=== PATIENT | female | born 1965 ===

== ENCOUNTER 2024-05-30 13:13 | Outpatient (CLI) | payer MEDICARE, MEDICAID, SELFPAY ==
--- NOTE | 2024-05-30 13:24 | USCV_ITS ---
Liz Peng Age: 59 Gender: F : 1965 Exam Date: 05/30/2024 12:50 Ordering Phys: Candace Adams Technologist: SHARDA Exam Location: [facility] Indication: varicose veins HISTORY: Lower extremity swelling. Varicose veins. Edema. Swelling. PROCEDURES: Venous duplex imaging was performed in bilateral lower extremities. The following venous structures were evaluated: common femoral vein, profunda vein, proximal portion of the greater saphenous vein, superficial femoral vein, and the popliteal vein. In addition, the posterior tibial veins were evaluated. Bilaterally, the common femoral, superficial femoral, profunda femoral, popliteal, posterior tibial, greater saphenous veins, and the peroneal trunk were identified and interrogated in the standard fashion. These veins were found to be easily compressible with spontaneous blood flow. No evidence of insufficiency or thrombus noted. Serial compression, augmentation maneuvers, and spectral Doppler flow evaluation were performed. Grayscale and doppler images were obtained. Reflux maneuvers were performed with patient in the standing position. Bilateral duplex Venous Insufficiency study of the Deep and Superficial systems was carried out according to normal protocol with the patient in supine positon for deep system and dependent position for the superficial system. FINDINGS: Examination was technically limited due to body habitus. No evidence of DVT seen in any vessel visualized at this time. No thrombus seen. CONCLUSIONS No evidence of right lower extremity DVT. No evidence of left lower extremity DVT. Costa Li MD (Electronically Signed) Final Date: 30 May 2024 14:48 S
== END 2024-05-30 13:14 | disposition home or self-care (01) ==
LOC: RAD 13:15
PROVIDERS: Family Provider Nurse Practitioner; Visit Provider Nurse Practitioner Family
DX: I83.93 Asymptomatic varicose veins of bilateral lower extremities (principal)
CPT/HCPCS: 93970

== ENCOUNTER 2025-02-10 13:22 | Emergency (ER) | payer OTHER, MEDICAID, SELFPAY ==
[2025-02-10 13:26] VITALS: BP 159/88; PULSE 69; RESP 16; TEMP 37.4; O2SAT 95; BMI 36.3
--- OUTSIDE RECORDS SUMMARY | 2025-02-10 13:30 | XMS_ITS | Encounter Summary ---
Author Organization [facility] Address [address] [place] [address] Care Team Providers Care Controls Technician Name Role Phone Isac Rubalcava MD Primary Care Provider +1 [phone] Encounter Details Date Type Department Care Team (Latest Contact Info) Description 06/03/[address] 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
--- OUTSIDE RECORDS SUMMARY | 2025-02-10 13:30 | XMS_ITS | Encounter Summary ---
Author Organization [facility] Address [address] [place] [address] Care Team Providers Care Clinical Investigator Name Role Phone Isac Rubalcava MD Primary Care Provider +1 -[phone] Encounter Details Date Type Department Care Team (Late st Contact Info) Description 05/18/2004 Outpatient Historical [facility] Neurology [address] [facility], [address] [place] [address] Sean Aaron MD [address] [place] [address] TREMOR NEC (Primary Dx) Social History Tobacco Use Types Packs/Day Years Used Date Smoking Tobacco: Never Assessed Comments Unknown Sex and Gender Information Value Date Recorded Sex Assigned at Not on file 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
--- OUTSIDE RECORDS SUMMARY | 2025-02-10 13:30 | XMS_ITS | Encounter Summary ---
Author Organization [facility] Address [address] [place] [address] Care Team Providers Care Sash Clamp Operator Name Role Phone Isac Rubalcava MD Primary Care Provider +1 [phone] Encounter Details Date Type Department Care Team (Latest Contact Info) Description 10/02/2003 Outpatient Historical [facility] [address] [place] [address] Nayla Garcia, MARINE PILOT [address] [place] [address] ANXIETY STATE NOS (Primary Dx) Social History Tobacco Use Types Packs/Day Years Used Date Smoking Tobacco: Never Assessed Comments Unknown Sex and Gender Information Value Date Recorded Sex Assigned at Not on file 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
--- OUTSIDE RECORDS SUMMARY | 2025-02-10 13:30 | XMS_ITS | Encounter Summary ---
Author Organization [facility] Address [address] [place] [address] Care Team Providers Care Tax Compliance Representative Name Role Phone Isac Rubalcava MD Primary Care Provider +1 [phone] Encounter Details Date Type Department Care Team (Late st Contact Info) Description 08/12/2003 Outpatient Historical [facility] General and Trauma Surgery-[address] [place] [address] Caleb Rogers MD [address] [address] SURGERY FOLLOWUP, UNSPEC (Primary Dx) Social History Tobacco Use Types Packs/Day Years Used Date Smoking Tobacco: Never Assessed Comments Unknown Sex and Gender Information Value Date Recorded Sex Assigned at Not on file 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
--- OUTSIDE RECORDS SUMMARY | 2025-02-10 13:30 | XMS_ITS | Encounter Summary ---
Author Organization [facility] Address [address] [place] [address] Care Team Providers Care Behavioral Health Rn Name Role Phone Isac Rubalcava MD Primary Care Provider +1 [phone] Encounter Details Date Type Department Care Team (Latest Contact Info) Description 05/22/2003 Outpatient Historical [facility] [address] [place] [address] Myriam Gandhi MD NO ADDRESS ON FILE Gynecologic examination (Primary Dx) Social History Tobacco Use Types Packs/Day Years Used Date Smoking Tobacco: Never Assessed Comments Unknown Sex and Gender Information Value Date Recorded Sex Assigned at Not on file 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
--- OUTSIDE RECORDS SUMMARY | 2025-02-10 13:30 | XMS_ITS | Encounter Summary ---
Author Organization [facility] Address [address] [place] [address] Care Team Providers Care Side Gluer Name Role Phone Isac Rubalcava MD Primary Care Provider +1 [phone] Encounter Details Date Type Department Care Team (Latest Contact Info) Description 06/22/2003 Outpatient Historical [facility] [address] [place] [address] Edgar Moyer MD [address] [address] FEMALE GENITAL SYMPTOMS NOS (Primary Dx) Social History Tobacco Use Types Packs/Day Years Used Date Smoking Tobacco: Never Assessed Comments Unknown Sex and Gender Information Value Date Recorded Sex Assigned at Not on file 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
--- OUTSIDE RECORDS SUMMARY | 2025-02-10 13:30 | XMS_ITS | Encounter Summary ---
Author Organization [facility] Address [address] [place] [address] Care Team Providers Care Drafter Chief Design Name Role Phone Isac Rubalcava MD Primary Care Provider +1 [phone] Encounter Details Date Type Department Care Team (Latest Contact Info) Description 05/20/2004 Outpatient Historical [facility] Endocrinology-[facility] [place] [address] [place] [address] Burak Coles MD NO ADDRESS ON FILE THYROTOX NOS NO CRISIS (Primary Dx); TOX DIF GOITER NO CRISIS Social History Tobacco Use Types Packs/Day Years Used Date Smoking Tobacco: Never Assessed Comments Unknown Sex and Gender Information Value Date Recorded Sex Assigned at Not on file 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 Gender Identity Not on file Sexual Orientation Not on file documented as of this encounter Plan of Treatment Not on file documented as of this encounter Visit Diagnoses Diagnosis Thyrotoxicosis without mention of goiter or other cause, without mention of thyrotoxic crisis or storm- 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
--- OUTSIDE RECORDS SUMMARY | 2025-02-10 13:30 | XMS_ITS | Encounter Summary ---
Author Organization [facility] Address [address] [place] [address] Care Team Providers Care Protection Chief Industrial Plant Name Role Phone Isac Rubalcava MD Primary Care Provider +1 [phone] Encounter Details Date Type Department Care Team (Latest Contact Info) Description 06/02/2004 Outpatient Historical [facility] [place] [address] [place] [address] Burak Coles MD NO ADDRESS ON FILE THYROTOX NOS NO CRISIS (Primary Dx); TOX DIF GOITER NO CRISIS Social History Tobacco Use Types Packs/Day Years Used Date Smoking Tobacco: Never Assessed Comments Unknown Sex and Gender Information Value Date Recorded Sex Assigned at Not on file 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 Gender Identity Not on file Sexual Orientation Not on file documented as of this encounter Plan of Treatment Not on file documented as of this encounter Visit Diagnoses Diagnosis Thyrotoxicosis without mention of goiter or other cause, without mention of thyrotoxic crisis or storm- Primary Toxic diffuse goiter without mention of thyrotoxic crisis or storm documented in this encounter Care Teams Protection Chief Industrial Plant Relationship Specialty Start Date End Date Isac Rubalcava MD [address] [facility] [address] [place] [address] PCP - General Family Practice 03/06/18 05/19/19 documented as of this encounter
--- OUTSIDE RECORDS SUMMARY | 2025-02-10 13:30 | XMS_ITS | Encounter Summary ---
Author Organization [facility] Address [address] [place] [address] Care Team Providers Care Brusher Name Role Phone Isac Rubalcava MD Primary Care Provider +1 [phone] Encounter Details Date Type Department Care Team (Latest Contact Info) Description 07/15/2003 Inpatient Historical [facility] Emergency Department [address] [place] [address] Caleb Rogers MD [address] [address] DIS OF GALLBLADDER NEC (Primary Dx) Social History Tobacco Use Types Packs/Day Years Used Date Smoking Tobacco: Never Assessed Comments Unknown Sex and Gender Information Value Date Recorded Sex Assigned at Not on file 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
--- OUTSIDE RECORDS SUMMARY | 2025-02-10 13:31 | XMS_ITS | Encounter Summary ---
Author Organization [facility] Address [address] [place] [address] Care Team Providers Care Port Warden Name Role Phone Isac Rubalcava MD Primary Care Provider +1 [phone] Encounter Details Date Type Department Care Team (Latest Contact Info) Description 04/29/2002 Outpatient Historical [facility] General Surgery [address] [address] [address] [place] [address] [place] [address] [facility] [address] [place] [address] ABDOMINAL PAIN EPIGASTRIC (Primary Dx) Social History Tobacco Use Types Packs/Day Years Used Date Smoking Tobacco: Never Assessed Comments Unknown Sex and Gender Information Value Date Recorded Sex Assigned at Not on file 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
--- OUTSIDE RECORDS SUMMARY | 2025-02-10 13:31 | XMS_ITS | Encounter Summary ---
Author Organization [facility] Address [address] [place] [address] Care Team Providers Care Appraiser Art Name Role Phone Isac Rubalcava MD Primary Care Provider +1 [phone] Encounter Details Date Type Department Care Team (Latest Contact Info) Description 04/14/2002 Outpatient Historical [facility] [address] [place] [address] Myriam Gandhi MD NO ADDRESS ON FILE Gynecologic examination (Primary Dx); FEMALE GENITAL SYMPTOMS NOS Social History Tobacco Use Types Packs/Day Years Used Date Smoking Tobacco: Never Assessed Comments Unknown Sex and Gender Information Value Date Recorded Sex Assigned at Not on file 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
--- OUTSIDE RECORDS SUMMARY | 2025-02-10 13:31 | XMS_ITS | Encounter Summary ---
Author Organization [facility] Address [address] [place] [address] Care Team Providers Care Box Spinner Name Role Phone Isac Rubalcava MD Primary Care Provider +1 -[phone] Reason for Referral * Outpatient Services (Routine) - Closed Specialty Diagnoses / Procedures Referred By Kevin crow Referred To Contact Diagnoses Neck swelling Nodule of neck Neck pain Procedures CT SOFT TISSUE NECK W CONTRAST Ines Byrd NP [address] [place] [address] Phone: tel: fax: Referral ID Status Reason Start Date Expiration Date Visits Re quested Visits Authorized [id number] Closed 04/29/2012 04/29/2013 1 1 Encounter Details Date Type Department Care Team (Late Contact Info) Description 04/29/2012 Ancillary Orders [facility] CT Scan [place] [address] [place] [address] Ines Byrd NP [address] [place] [address] Neck swelling; Nodule of neck; Neck pain Social History Tobacco Use Types Packs/Day Years Used Date Smoking Tobacco: Never Assessed Comments Unknown Sex and Gender Information Value Date Recorded Sex Assigned at Not on file 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 Sagittal and coronal reconstructions are also obtained. DESCRIPTION There is normal appearance of the parapharyngeal soft tissues and of the pharynx, hypopharynx, valleculae, piriform sinuses, larynx, and visualized portion of trachea. The hypopharynx is nondistended. There is normal appearance of the salivary glands. No cervical adenopathy is appreciated. There is normal appearance and appropriate symmetry of the cervical vasculature, with minimal atherosclerosis of the aortic arch noted. The thyroid gland appears small, with no thyroid nodule seen. The visualized portion of the brain and cerebellum appears unremarkable. The patient is edentulous. A skin marker placed at the site of the palpable nodule lies between the left submandibular gland and anterior border of the left sternocleidomastoid. No other soft tissue nodule or mass is appreciated at this location. There is mild osteophyte formation of the cervical spine more pronounced in the lower cervical levels. There is opacification of the maxillary sinuses compatible chronic sinusitis. There are some bullous changes in the pulmonary apices and there appears to be minimal dependent congestion on the lowermost images. IMPRESSION 1. negative for cervical adenopathy or mass 2. chronic sinusitis 3. small pulmonary apical bullous changes Procedure Note Neo Lucia MD - 05/02/[address] SOFT TISSUE NECK, IV contrast-enhanced 01 May 2012 TECHNIQUE Helical axial imaging was obtained from the skull base into the upper thorax at 3 mm increments for 87 axial images. Sagittal and coronal reconstructions are also obtained. DESCRIPTION There is normal appearance of the parapharyngeal soft tissues and of the pharynx, hypopharynx, valleculae, piriform sinuses, larynx, and visualized portion of trachea. The hypopharynx is nondistended. There is normal appearance of the salivary glands. No cervical adenopathy is appreciated. There is normal appearance and appropriate symmetry of the cervical vasculature, with minimal atherosclerosis of the aortic arch noted. The thyroid gland appears small, with no thyroid nodule seen. The visualized portion of the brain and cerebellum appears unremarkable. The patient is edentulous. A skin marker placed at the site of the palpable nodule lies between the left submandibular gland and anterior border of the left sternocleidomastoid. No other soft tissue nodule or mass is appreciated at this location. There is mild osteophyte formation of the cervical spine more pronounced in the lower cervical levels. There is opacification of the maxillary sinuses compatible chronic sinusitis. There are some bullous changes in the pulmonary apices and there appears to be minimal dependent congestion on the lowermost images. IMPRESSION 1. negative for cervical adenopathy or mass 2. chronic sinusitis 3. small pulmonary apical bullous changes Ines Byrd FOREST FIRE EQUIPMENT OPERATOR CT ORDERABLES Final Result documented in this encounter Visit Diagnoses Diagnosis Neck swelling Swelling, mass, or lump in head and neck Nodule of neck Swelling, mass, or lump in head and neck Neck pain Cervicalgia Neck swelling Swelling, mass, or lump in head and neck Nodule of neck Swelling, mass, or lump in head and neck Neck pain Cervicalgia documented in this encounter Care Teams Box Spinner Relationship Specialty Start Date End Date Isac Rubalcava MD [address] [facility] [address] [place] [address] PCP - General Family Practice 03/06/18 05/19/19 documented as of this encounter
--- OUTSIDE RECORDS SUMMARY | 2025-02-10 13:31 | XMS_ITS | Encounter Summary ---
Author Organization [facility] Address [address] [place] [address] Care Team Providers Care Pe Manager Name Role Phone Isac Rubalcava MD Primary Care Provider +1 [phone] Encounter Details Date Type Department Care Team (Latest Contact Info) Description 04/28/2002 Outpatient Historical [facility] [address] [place] [address] Bruce Gomez DO NO ADDRESS ON FILE ABDOMINAL PAIN RUQ (Primary Dx) Social History Tobacco Use Types Packs/Day Years Used Date Smoking Tobacco: Never Assessed Comments Unknown Sex and Gender Information Value Date Recorded Sex Assigned at Not on file 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
--- OUTSIDE RECORDS SUMMARY | 2025-02-10 13:31 | XMS_ITS | Encounter Summary ---
Author Organization [facility] Address [address] [place] [address] Care Team Providers Care Flower Pot Press Operator Name Role Phone Isac Rubalcava MD Primary Care Provider +1 -[phone] Encounter Details Date Type Department Care Team (Late st Contact Info) Description 05/01/2012 Ancillary Orders [facility] [address] [place] [address] Ines Byrd, TARYN [address] [place], [place] [address] Neck pain Social History Tobacco Use Types Packs/Day Years Used Date Smoking Tobacco: Never Assessed Comments Unknown Sex and Gender Information Value Date Recorded Sex Assigned at Not on file Legal Sex Female 5:53 AM SHAREPOINT DESIGNER DEVELOPER Gender Identity Not on file Sexual Orientation Not on file documented as of this encounter Plan of Treatment Not on file documented as of this encounter Results * XR CERVICAL SPINE 2 OR 3 VW (05/01/2012 11:30 AM CDT) Anatomical Region Laterality Modality Spine Computed Radiogr aphy 05/01/2012 11:1 7 AM CDT Narrative 05/02/2012 8:25 AM CDT DESCRIPTION AP and lateral cervical spine views and open-mouth odontoid projection 01 May 2012 show no acute fracture or loss of alignment. There are small anterior osteophytes of the inferior corners of the vertebral bodies. [place]-dens relationship is normal although partially obscured by the occiput. IMPRESSION mild osteoarthritis Procedure Note Neo Lucia MD - 05/02/2012 DESCRIPTION AP and lateral cervical spine views and open-mouth odontoid projection 01 May 2012 show no acute fracture or loss of alignment. There are small anterior osteophytes of the inferior corners of the vertebral bodies. [place]-dens relationship is normal although partially obscured by the occiput. IMPRESSION mild osteoarthritis Ines Byrd NP DIAGNOSTIC IMAGING ORDERABLE S Final Result documented in this encounter Visit Diagnoses Diagnosis Neck pain Cervicalgia Neck pain Cervicalgia documented in this encounter Care Teams Flower Pot Press Operator Relationship Specialty Start Date End Date Isac Rubalcava MD [address] [address] PCP - General Family Practice 03/06/18 05/19/19 documented as of this encounter
--- OUTSIDE RECORDS SUMMARY | 2025-02-10 13:31 | XMS_ITS | Encounter Summary ---
Author Organization [facility] Address [address] [place] [address] Care Team Providers Care Asbestos Coverer Name Role Phone Isac Rubalcava MD Primary Care Provider +1 [phone] Encounter Details Date Type Department Care Team (Late st Contact Info) Description 07/22/2004 Outpatient Historical [facility] Myriam Gandhi MD NO ADDRESS ON FILE aNyla Garcia, BAKERY WORKER CONVEYOR LINE [address] [place] [phone] Social History Tobacco Use Types Packs/Day Years Used Date Smoking Tobacco: Never Assessed Comments Unknown Sex and Gender Information Value Date Recorded Sex Assigned at Not on file Legal Sex Female 5:53 AM TYPEWRITER RIBBON WINDER Gender Identity Not on file Sexual Orientation Not on file documented as of this encounter Plan of Treatment Not on file documented as of this encounter Procedures Procedure Name Priority Date/Time Associated Diagnosis Comments TSH Routine 07/22/2004 12:40 AM TYPEWRITER RIBBON WINDER T4 FREE Routine 07/22/2004 12:40 AM TYPEWRITER RIBBON WINDER documented in this encounter Results * (ABNORMAL) T4 FREE (07/22/2004 12:40 AM TYPEWRITER RIBBON WINDER) T4 FREE 0.63(L) 0.71 - 1.85 ng/dL INTERFACE SYSTEM 07/22/2004 12:4 0 AM TYPEWRITER RIBBON WINDER us Myriam Gandhi MD CHEMISTRY ORDERABLES Final Result Performing Organization Address City/State/[facility] Co de Phone Number INTERFACE SYSTEM Refer to clinic/hospital department * (ABNORMAL) TSH (07/22/2004 12:40 AM TYPEWRITER RIBBON WINDER) TSH <0.03(L) 0.49 - 4.67 uIU/ml INTERFACE SYSTEM 07/22/2004 12:4 0 AM TYPEWRITER RIBBON WINDER Myriam Gandhi MD CHEMISTRY ORDERABLES Final Result Performing Organization Address [facility] de Phone Number INTERFACE SYSTEM Refer to clinic/hospital department documented in this encounter Visit Diagnoses Not on filedocumented in this encounter Care Teams Asbestos Coverer Relationship Specialty Start Date End Date Isac Rubalcava MD [address] [phone] PCP - General Family Practice 03/06/18 05/19/19 documented as of this encounter
--- OUTSIDE RECORDS SUMMARY | 2025-02-10 13:31 | XMS_ITS | Encounter Summary ---
Author Organization [facility] Address [address] Zabala: [place] [address] Care Team Providers Care Lapel Padder Blindstitch Name Role Phone Isac Rubalcava MD Primary Care Provider +1 [phone] Encounter Details Date Type Department Care Team (Late st Contact Info) Description 06/20/2005 Outpatient Historical Nayla Garcia, STAFF TRAINER [address] [place] [address] Social History Tobacco Use Types Packs/Day Years Used Date Smoking Tobacco: Never Assessed Comments Unknown Sex and Gender Information Value Date Recorded Sex Assigned at Not on file Legal Sex Female 5:53 AM SUPPRESSION CREW LEADER Gender Identity Not on file Sexual Orientation Not on file documented as of this encounter Plan of Treatment Not on file documented as of this encounter Visit Diagnoses Not on filedocumented in this encounter Care Teams Lapel Padder Blindstitch Relationship Specialty Start Date End Date Isac Rubalcava MD [address] [facility] [address] [place] [address] PCP - General Family Practice 03/06/18 05/19/19 documented as of this encounter
--- OUTSIDE RECORDS SUMMARY | 2025-02-10 13:31 | XMS_ITS | Encounter Summary ---
Author Organization [facility] Address [address] [place] [address] Care Team Providers Care Banking Specialist Name Role Phone Isac Rubalcava MD Primary Care Provider +1 [phone] Encounter Details Date Type Department Care Team (Latest Contact Info) Description 07/06/2004 Outpatient Historical [facility] [address] [place] [address] Nayla Garcia, RETORT LOAD EXPEDITER [address] [place] [address] ACUTE SINUSITIS NOS (Primary Dx) Social History Tobacco Use Types Packs/Day Years Used Date Smoking Tobacco: Never Assessed Comments Unknown Sex and Gender Information Value Date Recorded Sex Assigned at Not on file Legal Sex Female 5:53 AM WOOL CLASSER Gender Identity Not on file Sexual Orientation Not on file documented as of this encounter Plan of Treatment Not on file documented as of this encounter Visit Diagnoses Diagnosis Acute sinusitis, unspecified- Primary documented in this encounter Care Teams Banking Specialist Relationship Specialty Start Date End Date Isac Rubalcava MD [address] [facility] [address] [place] [phone] PCP - General Family Practice 03/06/18 05/19/19 documented as of this encounter
--- OUTSIDE RECORDS SUMMARY | 2025-02-10 13:31 | XMS_ITS | Encounter Summary ---
Author Organization [facility] Address [address] [place] [address] Care Team Providers Care Coffin Maker Name Role Phone Isac Rubalcava MD Primary Care Provider +1 [phone] Encounter Details Date Type Department Care Team (Latest Contact Info) Description 05/01/2005 Outpatient Historical [facility] [address] [place] [address] Nayla Garcia, TRANSMISSION REPAIRER [address] [place] [address] TOX DIF GOITER NO CRISIS (Primary Dx); ACUTE URI NOS Social History Tobacco Use Types Packs/Day Years Used Date Smoking Tobacco: Never Assessed Comments Unknown Sex and Gender Information Value Date Recorded Sex Assigned at Not on file Legal Sex Female 5:53 AM AVIONICS SUPERVISOR Gender Identity Not on file Sexual Orientation Not on file documented as of this encounter Plan of Treatment Not on file documented as of this encounter Visit Diagnoses Diagnosis 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
--- OUTSIDE RECORDS SUMMARY | 2025-02-10 13:31 | XMS_ITS | Encounter Summary ---
Author Organization [facility] Address [address] [place] [address] Care Team Providers Care Sharepoint Web Developer Name Role Phone Isac Rubalcava MD Primary Care Provider +1 [phone] Encounter Details Date Type Department Care Team (Late st Contact Info) Description 01/06/2014 Ancillary Orders [facility] Admitting [address] [place] [address] Ines Byrd, TARYN [address] [place], [place] [address] Low back pain (Primary Dx) Social History Tobacco Use Types Packs/Day Years Used Date Smoking Tobacco: Every Day Cigarettes Alcohol Use Standard Drinks/Week Comments No 0 (1 standard drink = 0.6 oz pur e alcohol) Comments No Sex and Gender Information Value Date Recorded Sex Assigned at Not on file Legal Sex Female 5:53 AM SLURRY MAN Gender Identity Not on file Sexual Orientation Not on file Occupation Industry Job Start Date Job End Date Not on file Not on file Not on file Not on file documented as of this encounter Plan of Treatment Not on file documented as of this encounter Results * XR LUMBAR SPINE 2 OR 3 VW (01/06/2014 11:11 AM CDT) Anatomical Region Laterality Modality Spine Computed Radiogr aphy 01/06/2014 11:0 3 AM CDT Narrative 01/06/2014 11:54 AM CDT PROCEDURE XR LUMBAR SPINE, three views 06 January 2014 DESCRIPTION AP and lateral views of the lumbar spine and collimated lateral L5-S1 projection show lumbar levoscoliosis with degenerative change at the lumbosacral junction. There is prominent anteroleft lateral osteophyte at L5-S1. Surgical clips are noted in the right upper quadrant, likely status post cholecystectomy. IMPRESSION scoliosis and degenerative changes Procedure Note Neo Luica MD - 01/06/2014 PROCEDURE XR LUMBAR SPINE, three views 06 January 2014 DESCRIPTION AP and lateral views of the lumbar spine and collimated lateral L5-S1 projection show lumbar levoscoliosis with degenerative change at the lumbosacral junction. There is prominent anteroleft lateral osteophyte at L5-S1. Surgical clips are noted in the right upper quadrant, likely status post cholecystectomy. IMPRESSION scoliosis and degenerative changes Ines Byrd LOADING UNIT OPERATOR SEATING DIAGNOSTIC IMAGING ORDERABLE S Final Result documented in this encounter Visit Diagnoses Diagnosis Low back pain- Primary Lumbago Low back pain Lumbago documented in this encounter Care Teams Sharepoint Web Developer Relationship Specialty Start Date End Date Isac Rubalcava MD [address] [facility] [address] [place] [address] PCP - General Family Practice 03/06/18 05/19/19 documented as of this encounter
--- OUTSIDE RECORDS SUMMARY | 2025-02-10 13:31 | XMS_ITS | Encounter Summary ---
Author Organization [facility] Address [address] [place] [address] Care Team Providers Care History Professor Name Role Phone Isac Rubalcava MD Primary Care Provider [phone] [phone] Encounter Details Date Type Department Care Team (Late st Contact Info) Description 05/22/2003 Outpatient Historical [facility] [address] [place] [address] Nayla Garcia, PRODUCTION SAMPLER [address] [place] [phone] Social History Tobacco Use Types Packs/Day Years Used Date Smoking Tobacco: Never Assessed Comments Unknown Sex and Gender Information Value Date Recorded Sex Assigned at Not on file Legal Sex Female 5:53 AM CORK INSULATION INSTALLER Gender Identity Not on file Sexual Orientation Not on file documented as of this encounter Plan of Treatment Not on file documented as of this encounter Visit Diagnoses Not on filedocumented in this encounter Care Teams History Professor Relationship Specialty Start Date End Date Isac Rubalcava MD [address] [place] [address] PCP - General Family Practice 03/06/18 05/19/19 documented as of this encounter
--- OUTSIDE RECORDS SUMMARY | 2025-02-10 13:31 | XMS_ITS | Encounter Summary ---
Author Organization [facility] Address [address] [place] [address] Care Team Providers Care Manager Surgery Name Role Phone Isac Rubalcava MD Primary Care Provider +1 [phone] Encounter Details Date Type Department Care Team (Latest Contact Info) Description 09/02/2004 Outpatient Historical [facility] [address] [place] [address] Burak Coles MD NO ADDRESS ON FILE TOX DIF GOITER NO CRISIS (Primary Dx); HYPOTHYROIDISM NOS Social History Tobacco Use Types Packs/Day Years Used Date Smoking Tobacco: Never Assessed Comments Unknown Sex and Gender Information Value Date Recorded Sex Assigned at Not on file Legal Sex Female 5:53 AM BUSINESS PROCESS MANAGER Gender Identity Not on file Sexual Orientation Not on file documented as of this encounter Plan of Treatment Not on file documented as of this encounter Visit Diagnoses Diagnosis 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
--- OUTSIDE RECORDS SUMMARY | 2025-02-10 13:31 | XMS_ITS | Encounter Summary ---
Author Organization [facility] Address [address] [place] [address] Care Team Providers Care Nuclear Medicine Officer Name Role Phone Isac Rubalcava MD Primary Care Provider +1 [phone] Encounter Details Date Type Department Care Team (Latest Contact Info) Description 05/04/1999 Outpatient Historical [facility] Jake Longo NO ADDRESS ON FILE Irritable bowel syndrome (Primary Dx) Social History Tobacco Use Types Packs/Day Years Used Date Smoking Tobacco: Never Assessed Comments Unknown Sex and Gender Information Value Date Recorded Sex Assigned at Not on file Legal Sex Female 5:53 AM SUPERVISOR TUMBLING AND ROLLING Gender Identity Not on file Sexual Orientation Not on file documented as of this encounter Plan of Treatment Not on file documented as of this encounter Visit Diagnoses Diagnosis Irritable bowel syndrome- Primary documented in this encounter Care Teams Nuclear Medicine Officer Relationship Specialty Start Date End Date Isac Rubalcava MD [address] [facility] [address] [place] [address] PCP - General Family Practice 03/06/18 05/19/19 documented as of this encounter
--- OUTSIDE RECORDS SUMMARY | 2025-02-10 13:31 | XMS_ITS | Encounter Summary ---
Author Organization [facility] Address [address] [place] [address] Care Team Providers Care Director Physical Therapy Name Role Phone Isac Rubalcava MD Primary Care Provider +1 -[phone] Encounter Details Date Type Department Care Team (Latest Contact Info) Description 06/23/2005 Outpatient Historical [facility] [address] [place] [address] Nayla Garcia, SPEED OPERATOR [address] [place] [address] Campylobacter enteritis (Primary Dx) Social History Tobacco Use Types Packs/Day Years Used Date Smoking Tobacco: Never Assessed Comments Unknown Sex and Gender Information Value Date Recorded Sex Assigned at Not on file Legal Sex Female 5:53 AM ASSISTANT PROFESSOR OF GERMAN Gender Identity Not on file Sexual Orientation Not on file documented as of this encounter Plan of Treatment Not on file documented as of this encounter Visit Diagnoses Diagnosis Campylobacter enteritis- Primary Intestinal infection due to campylobacter documented in this encounter Care Teams Director Physical Therapy Relationship Specialty Start Date End Date Isac Rubalcava MD [address] [facility] [address] [place] [phone] PCP - General Family Practice 03/06/18 05/19/19 documented as of this encounter
--- OUTSIDE RECORDS SUMMARY | 2025-02-10 13:31 | XMS_ITS | Clinical Summary ---
Author Organization [facility] Address [address] [place]: Epic Prelude ADT [place] [address] Care Team Providers Care Tumbler Plater Name Role Phone Non-Staff, Physician Primary Care Provider Unava ilable Allergies Active Allergy Reactions Criticality Noted Date Comments Adhesive Rash Low 05/04/2021 Codeine Nausea and Vomiting Low 08/14/2013 Latex Rash Low 05/04/2021 Sulfa (Sulfonamide Antibiotics) Nausea and Vomiting Low 08/14/2013 Medications gabapentin (NEURONTIN) 300 mg capsule TAKE 1 CAPSULE(300 MG) BY MOUTH THREE TIMES DAILY 30 Capsule 0 03/06/20 18 Active cpap medical deviceIndications: Obstructive sleep apnea (adult) (pediatric) CPAP @ 6 cwp with heated humidifier. Length of need:99 mo; Cpap/Bipap supplies: nasal mask with headgear A7034,A7035 1/6mo, mask only A7034 1/3mo, cushion A7032 2/mo, heated A4604 1/3mo, water chamber A7046 1/6mo, filter disposable A7038 2/mo, Filter reusable A7039 1/6mo 1 Each 0 12/26/19 20 Active venlafaxine (EFFEXOR XR) 150 mg Extended Release 24 hour capsule Take 300 mg by mouth daily. Active lisinopriL (PRINIVIL) 10 mg tablet Take 10 mg by mouth daily. Active lovastatin (MEVACOR) 20 mg tablet Take 20 mg by mouth daily. Active levothyroxine 125 mcg tablet Take 125 mcg by mouth daily. Active buspirone HCl (BUSPAR ORAL) Take 20 mg by mouth. 1/3 TAB ORAL DAILY Active traZODone (DESYREL) 100 mg tablet Take 100 mg by mouth daily at bedtime. Active ondansetron (ZOFRAN ODT) 4 mg Tablet, Rapid Dissolve Take 1 Tablet (4 mg) by mouth every 6 hours as needed for Nausea/Emesis. Dissolve tablet on top of tongue, then swallow with saliva. 30 Tablet 05/04/20 21 Active fluticasone propionate (FLONASE) 50 mcg/spray [place], Suspension nasal inhalerIndications :Acute suppurative otitis media of right ear without spontaneous rupture of tympanic membrane, recurrence not specified SHAKE LIQUID AND USE 2 SPRAYS IN EACH NOSTRIL DAILY. 48 Gram 1 12/16/19 17 Active levothyroxine (Synthroid) 125 mcg tabletIndications: Acquired hypothyroidism Take 1 Tablet (125 mcg) by mouth daily wool supplier. 90 Tablet 1 05/08/20 17 Active desvenlafaxine (PRISTIQ) 100 mg Extended Release 24 hour tabletIndications: Depression with anxiety Take 1 Tablet (100 mg) by mouth daily with breakfast. 90 Tablet 1 06/20/20 17 Active traZODone (DESYREL) 100 mg tablet TAKE 1 TABLET(100 MG) BY MOUTH DAILY AT BEDTIME. 90 Tablet 3 03/09/20 17 Active raNITIdine (ZANTAC) 150 mg tabletIndications: Gastroesophageal reflux disease with esophagitis TAKE 1 TABLET BY MOUTH ONCE DAILY NEEDED FOR INDIGESTION 90 Tablet 0 12/04/19 18 Active clonazePAM (KlonoPIN) 1 mg tabletIndications: Depression with anxiety TAKE 2 TAB IN THE AM; 1 TAB IN PM. 90 Tablet 1 07/11/20 17 Active Active Problems Patient Care Coordination No te Formatting of this note migh t be different from the original. PCP Reselection in Progress as of 09-05-21 Problem Noted Date Diagnosed Date Advanced sleep phase syndrome 12/15/2016 Obstructive sleep apnea on CPAP 09/20/2016 Gastroesophageal reflux disease with esophagitis 03/06/2016 Abdominal pain 02/15/2016 Nausea and vomiting 02/15/2016 Tobacco use 05/07/2015 Aneurysm of abdominal aorta 12/18/2014 Hyperlipidemia 10/16/2014 Restless leg syndrome 10/16/2014 Hypothyroidism 10/16/2014 Depression with anxiety 10/16/2014 Chronic back pain 10/16/2014 Seasonal allergic rhinitis 10/16/2014 Graves disease 10/16/2014 Constipation 12/19/2013 Internal hemorrhoids with other complication 05/2014 Adenomatous polyp of colon 09/23/2013 Resolved Problems Problem Noted Date Diagnosed Date Resolved Date Perforated appendix 08/26/2012 08/27/19 16 Immunizations Immunization Administration Dates Next Due (PNEUMOVAX 23)(50 YRS UP) PN EUMOCOCCAL POLYSACCHARIDE (PPV23) 0.5 ML, IM 05/15/2005 (TDVAX)(7 YRS UP) TETANUS AN D DIPHTHERIA TOXOIDS, ADSORBED (2 LF OF TETANUS TOXOID AND 2 LF OF DIPHTHERIA TOXOID), 0.5ML (PF), IM 05/11/2006 Influenza Seasonal Unspecifi ed Formulation IM 04/10/2017,04/05/2016,03/10/2015,05/15 Family History Medical History Relation Name Comments Cancer Father prostate Diabetes Father Heart Disease Father Hypertension Father Unknown Maternal Grandfather Unknown Maternal Grandmother Diabetes Mother Heart Disease Mother Hypertension Mother Unknown Paternal Grandfather Unknown Paternal Grandmother Breast Cancer Neg Hx Relation Name Status Comments Father Maternal Grandfather Maternal Grandmother Mother Paternal Grandfather Paternal Grandmother Social History Tobacco Use Types Packs/Day Years Used Date Smoking Tobacco: Every Day Cigarettes Smokeless Tobacco: Never Alcohol Use Standard Drinks/Week Comments No 0 (1 standard drink = 0.6 oz pur e alcohol) Comments No Sex and Gender Information Value Date Recorded Sex Assigned at Not on file Legal Sex Female 2:41 AM BUDGET COUNSELOR Gender Identity Not on file Sexual Orientation Not on file Last Filed Vital Signs Vital Sign Reading Time Taken Comments Blood Pressure 136/83 05/04/2021 11:55 PM CDT Pulse 73 01/17/2019 9:37 AM CDT Temperature 35.6 C (96 F) 05/04/2021 10:34 PM CDT Respiratory Rate 18 05/04/2021 11:55 PM CDT Oxygen Saturation 95% 05/04/2021 11:55 PM CDT Inhaled Oxygen Concentration - - Weight 83.6 kg (184 lb 3.2 oz) 05/04/2021 10:34 PM CDT Height 162.6 cm (5' 4 ) 05/04/2021 10:34 PM CDT Body Mass Index 31.62 05/04/2021 10:34 PM CDT Plan of Treatment Health Maintenance Due Date Last Done Comments HPV/Cotest (21-29) 1985 CERVICAL CANCER SCREENING 1994 HPV/Cotest (30-65) 1994 PAP SMEAR 1994 BREAST CANCER SCREENING 2004 DTAP/TDAP/TD VACCINES (1 - Tdap) 05/12/2006 05/11/2006 FIT-DNA Q 3 years 2009 FIT/FOBT Q 1 year 2009 Flex Sig/CT Colonography Q 5 years 2009 ZOSTER VACCINE (1 of 2) 2014 COLORECTAL SCREENING 09/08/2016 09/08/2013 Colorectal Cancer Screening 09/08/2016 INFLUENZA VACCINE (#1) 2025 7, 04/05/2016, 03/10/2015, Additional history exists RSV VACCINE (60+ or ) (1 - 1-dose 75+ series) 2039 HEPATITIS B VACCINES Aged Out No long er eligible based on patient's age to complete this topic Insurance [facility] DUAL COMPLETE HMO [facility] [id number] Care Teams Tumbler Plater Relationship Specialty Start Date End Date Non-Staff, Physician NO ADDRESS ON FILE PCP - General 05/25/21
--- OUTSIDE RECORDS SUMMARY | 2025-02-10 13:31 | XMS_ITS | Encounter Summary ---
Author Organization [facility] Address [address] [place] [address] Care Team Providers Care Plexiglas Former Name Role Phone sIac Rubalcava MD Primary Care Provider +1 -[phone] Encounter Details Date Type Department Care Team (Latest Contact Info) Description 04/07/2005 Outpatient Historical [facility] [address] [place] [address] Nayla Garcia, RECOVERY AUDITOR [address] [place] [address] HYPOTHYROIDISM NOS (Primary Dx) Social History Tobacco Use Types Packs/Day Years Used Date Smoking Tobacco: Never Assessed Comments Unknown Sex and Gender Information Value Date Recorded Sex Assigned at Not on file Legal Sex Female 5:53 AM PATIENT OBSERVATION ASSISTANT Gender Identity Not on file Sexual Orientation Not on file documented as of this encounter Plan of Treatment Not on file documented as of this encounter Visit Diagnoses Diagnosis Unspecified hypothyroidism- Primary documented in this encounter Care Teams Plexiglas Former Relationship Specialty Start Date End Date Isac Rubalcava MD [address] [place] [address] PCP - General Family Practice 03/06/18 05/19/19 documented as of this encounter
--- OUTSIDE RECORDS SUMMARY | 2025-02-10 13:31 | XMS_ITS | Encounter Summary ---
Author Organization [facility] Address [address] [place] [address] Care Team Providers Care Printing Shop Supervisor Name Role Phone Isac Rubalcava MD Primary Care Provider +1 [phone] Encounter Details Date Type Department Care Team (Latest Contact Info) Description 11/19/2002 Outpatient Historical [facility] Family Medicine [address] [address] Myriam Gandhi MD NO ADDRESS ON FILE EDEMA (Primary Dx) Social History Tobacco Use Types Packs/Day Years Used Date Smoking Tobacco: Never Assessed Comments Unknown Sex and Gender Information Value Date Recorded Sex Assigned at Not on file Legal Sex Female 5:53 AM ARCHITECTURAL REPRESENTATIVE Gender Identity Not on file Sexual Orientation Not on file documented as of this encounter Plan of Treatment Not on file documented as of this encounter Visit Diagnoses Diagnosis Edema- Primary documented in this encounter Care Teams Printing Shop Supervisor Relationship Specialty Start Date End Date Isac Rubalcava MD [address] [address] PCP - General Family Practice 03/06/18 05/19/19 documented as of this encounter
--- OUTSIDE RECORDS SUMMARY | 2025-02-10 13:31 | XMS_ITS | Encounter Summary ---
Author Organization [facility] Address [address] [place] [address] Care Team Providers Care Candy Cutter Machine Name Role Phone Isac Rubalcava MD Primary Care Provider +1 -[phone] Encounter Details Date Type Department Care Team (Latest Contact Info) Description 04/04/2012 Ancillary Orders [facility] Mammography [place] [address] [address] Ines Byrd, TARYN [address] [place] [address] Visit for screening mammogram Social History Tobacco Use Types Packs/Day Years Used Date Smoking Tobacco: Never Assessed Comments Unknown Sex and Gender Information Value Date Recorded Sex Assigned at Not on file 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
--- OUTSIDE RECORDS SUMMARY | 2025-02-10 13:31 | XMS_ITS | Encounter Summary ---
Author Organization [facility] Address [address] [place] [address] Care Team Providers Care Toll Testboard Worker Name Role Phone Isac Rubalcava MD Primary Care Provider +1 [phone] Encounter Details Date Type Department Care Team (Latest Contact Info) Description 05/11/2006 Outpatient Historical [facility] Family Medicine [address] [address] Alfred Michaud NP NO ADDRESS ON FILE Superficial Injury of Cornea (Primary Dx) Social History Tobacco Use Types Packs/Day Years Used Date Smoking Tobacco: Never Assessed Comments Unknown Sex and Gender Information Value Date Recorded Sex Assigned at Not on file 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
--- OUTSIDE RECORDS SUMMARY | 2025-02-10 13:31 | XMS_ITS | Encounter Summary ---
Author Organization [facility] Address [address] [place] [address] Care Team Providers Care Materials Handler Name Role Phone Isac Rubalcava MD Primary Care Provider +1 [phone] Reason for Referral * Outpatient Services (Routine) - Closed Specialty Diagnoses / Procedures Referred By Kevin t Referred To Contact Diagnoses Abdominal pain, right lower quadrant Unspecified symptom associated with female genital organs Procedures CT ABDOMEN PELVIS W CONTRAST Ines Byrd NP [address] [place] [address] Phone: tel: fax: Referral ID Status Reason Start Date Expiration Date Visits Re quested Visits Authorized [id number] Closed 03/27/2012 03/27/2013 1 1 Encounter Details Date Type Department Care Team (Late st Contact Info) Description 03/27/2012 Ancillary Orders [facility] Scan [place] [address] [place] [phone] Ines Byrd NP [address] [place], [place] [id number] Abdominal pain, right lower quadrant; Unspecified symptom associated with female genital organs Social History Tobacco Use Types Packs/Day Years Used Date Smoking Tobacco: Never Assessed Comments Unknown Sex and Gender Information Value Date Recorded Sex Assigned at Not on file 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 Sex Female 5:53 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 CONSULTANT Gender Identity Not on file Sexual Orientation Not on file documented as of this encounter Plan of Treatment Not on file documented as of this encounter Results * CT ABDOMEN PELVIS W CONTRAST (03/27/2012 10:31 AM CDT) Anatomical Region Laterality Modality Abdomen Computed Tomogra phy 03/27/2012 10:2 8 AM CDT Narrative 03/27/2012 2:[address] ABDOMEN &.br TECHNIQUE After oral administration of contrast material and injection of 100 mL Optiray-320 nonionic contrast material intravenously, helical axial CT was obtained from the lung bases through the pelvis and imaged at 5 mm increments for 93 axial images. Sagittal and coronal reconstructions are also obtained. DESCRIPTION There is hazy increased density of the infrarenal fascia symmetrically bilaterally (axial image 51 series two and coronal image 98 series four). MRI may be considered for further evaluation. On the same images there is note of a lumbar aortic aneurysm measuring 3.7 cm AP diameter lying below the renal arteries and just above the bifurcation. No evidence of leakage is appreciated. The possibility of a minimal leak accounting for the increased density in the retroperitoneum is suggested but not considered likely. MRI in this regard could also assess for presence of blood products. Status post appendectomy is noted with metallic clips in the gallbladder fossa. No biliary duct dilatation is seen. Liver, pancreas, spleen, adrenal glands, kidneys, ureters, uterus, and adnexa appear unremarkable. No free fluid is seen in the pelvis. Urinary bladder wall appears thickened but is nondistended. The small bowel pattern is unremarkable. Is moderate gas and fecal artifact in the colon. Appendix is identified without inflammatory change. No free fluid or free air are seen in the abdomen and the abdominal wall appears intact. IMPRESSION 1. partially imaged bullous change in the right lung 2. status post cholecystectomy 3. 3.7 cm fusiform lower lumbar aortic aneurysm 4. slightly increased density of the retroperitoneal fat symmetrically as described -- recommend MRI follow-up Procedure Note Neo Lucia MD - 03/27/[address] ABDOMEN &.br TECHNIQUE After oral administration of contrast material and injection of 100 mL Optiray-320 nonionic contrast material intravenously, helical axial CT was obtained from the lung bases through the pelvis and imaged at 5 mm increments for 93 axial images. Sagittal and coronal reconstructions are also obtained. DESCRIPTION There is hazy increased density of the infrarenal fascia symmetrically bilaterally (axial image 51 series two and coronal image 98 series four). MRI may be considered for further evaluation. On the same images there is note of a lumbar aortic aneurysm measuring 3.7 cm AP diameter lying below the renal arteries and just above the bifurcation. No evidence of leakage is appreciated. The possibility of a minimal leak accounting for the increased density in the retroperitoneum is suggested but not considered likely. MRI in this regard could also assess for presence of blood products. Status post appendectomy is noted with metallic clips in the gallbladder fossa. No biliary duct dilatation is seen. Liver, pancreas, spleen, adrenal glands, kidneys, ureters, uterus, and adnexa appear unremarkable. No free fluid is seen in the pelvis. Urinary bladder wall appears thickened but is nondistended. The small bowel pattern is unremarkable. Is moderate gas and fecal artifact in the colon. Appendix is identified without inflammatory change. No free fluid or free air are seen in the abdomen and the abdominal wall appears intact. IMPRESSION 1. partially imaged bullous change in the right lung 2. status post cholecystectomy 3. 3.7 cm fusiform lower lumbar aortic aneurysm 4. slightly increased density of the retroperitoneal fat symmetrically as described -- recommend MRI follow-up Ines Byrd NP CT ORDERABLES Final Result documented in this encounter Visit Diagnoses Diagnosis Abdominal pain, RLQ Abdominal pain, right lower quadrant Unspecified symptom associated with female genital organs Abdominal pain, right lower quadrant Abdominal pain, right lower quadrant Unspecified symptom associated with female genital organs documented in this encounter Care Teams Materials Handler Relationship Specialty Start Date End Date Isac Rubalcava MD [address] [facility] [address] [place] [address] PCP - General Family Practice 03/06/18 05/19/19 documented as of this encounter
--- OUTSIDE RECORDS SUMMARY | 2025-02-10 13:31 | XMS_ITS | Encounter Summary ---
Author Organization [facility] [facility] Address [address] [place] [address] Care Team Providers Care Manager Implementation Name Role Phone Isac Rubalcava MD Primary Care Provider +1 [phone] Encounter Details Date Type Department Care Team (Late st Contact Info) Description 03/15/2004 Outpatient Historical [facility] Neurology [address], [address] [place] [address] Sean Aaron MD [address] [place] [address] TREMOR NEC (Primary Dx) Social History Tobacco Use Types Packs/Day Years Used Date Smoking Tobacco: Never Assessed Comments Unknown Sex and Gender Information Value Date Recorded Sex Assigned at Not on file 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
--- OUTSIDE RECORDS SUMMARY | 2025-02-10 13:31 | XMS_ITS | Encounter Summary ---
Author Organization [facility] Address [address] [place] [address] Care Team Providers Care Timber Feller Name Role Phone Isac Rubalcava MD Primary Care Provider +1 [phone] Encounter Details Date Type Department Care Team (Latest Contact Info) Description 06/04/2005 Outpatient Historical [facility] [address] [place] [address] AMBULANCE, [facility] [place] ABDOMINAL PAIN PERIUMBILICAL (Primary Dx) Social History Tobacco Use Types Packs/Day Years Used Date Smoking Tobacco: Never Assessed Comments Unknown Sex and Gender Information Value Date Recorded Sex Assigned at Not on file Legal Sex Female 5:53 AM SUPERVISOR BYPRODUCTS Gender Identity Not on file Sexual Orientation Not on file documented as of this encounter Plan of Treatment Not on file documented as of this encounter Visit Diagnoses Diagnosis Abdominal pain, periumbilic- Primary documented in this encounter Care Teams Timber Feller Relationship Specialty Start Date End Date Isac [facility]alcava MD [address] [facility] [address] [place] [address] PCP - General Family Practice 03/06/18 05/19/19 documented as of this encounter
--- OUTSIDE RECORDS SUMMARY | 2025-02-10 13:31 | XMS_ITS | Encounter Summary ---
Author Organization [facility] Address [address] [place] [address] Care Team Providers Care Pile Driver Operator Name Role Phone Isac Rubalcava MD Primary Care Provider +1 [phone] Encounter Details Date Type Department Care Team (Latest Contact Info) Description 06/19/2005 Outpatient Historical [facility] [address] [place] [address] Nayla Garcia, FERTILIZING MACHINE OPERATOR [address] [place] [address] DIARRHEA NOS (Primary Dx) Social History Tobacco Use Types Packs/Day Years Used Date Smoking Tobacco: Never Assessed Comments Unknown Sex and Gender Information Value Date Recorded Sex Assigned at Not on file Legal Sex Female 5:53 AM INTERPRETER FOR THE DEAF Gender Identity Not on file Sexual Orientation Not on file documented as of this encounter Plan of Treatment Not on file documented as of this encounter Visit Diagnoses Diagnosis Diarrhea- Primary documented in this encounter Care Teams Pile Driver Operator Relationship Specialty Start Date End Date Isac Rubalcava MD [address] [place] [address] PCP - General Family Practice 03/06/18 05/19/19 documented as of this encounter
--- OUTSIDE RECORDS SUMMARY | 2025-02-10 13:31 | XMS_ITS | Encounter Summary ---
Author Organization [facility] Address [address] [place] [address] Care Team Providers Care Clerk Name Role Phone Isac Rubalcava MD Primary Care Provider + -[phone] Encounter Details Date Type Department Care Team (Latest Contact Info) Description 04/03/2003 Outpatient Historical [facility] Family Medicine [place] [address] [address] Edgar Moyer MD [address] [address] MYCOPLASMA/EATON'S/P PLO INFECTION (Primary Dx); CHEST PAIN NOS; VENTRICULAR FLUTTER (CMS/HCC) Social History Tobacco Use Types Packs/Day Years Used Date Smoking Tobacco: Never Assessed Comments Unknown Sex and Gender Information Value Date Recorded Sex Assigned at Not on file 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
--- OUTSIDE RECORDS SUMMARY | 2025-02-10 13:31 | XMS_ITS | Encounter Summary ---
Author Organization [facility] Address [address] [place] [address] Care Team Providers Care Print Manager Name Role Phone Isac Rubalcava MD Primary Care Provider + -[phone] Encounter Details Date Type Department Care Team (Latest Contact Info) Description 09/20/1998 Outpatient Historical [facility] Isac Herbert MD [address] [place] [address] Routine medical exam (Primary Dx); Screening for malignant neoplasm of the cervix; Other specified viral warts Social History Tobacco Use Types Packs/Day Years Used Date Smoking Tobacco: Never Assessed Comments Unknown Sex and Gender Information Value Date Recorded Sex Assigned at Not on file Legal Sex Female 5:53 AM MEDICAL RECRUITER Gender Identity Not on file Sexual Orientation Not on file documented as of this encounter Plan of Treatment Not on file documented as of this encounter Visit Diagnoses Diagnosis Routine medical exam- Primary Routine general medical examination at a health care facility Screening for malignant neoplasm of the cervix Other specified viral warts documented in this encounter Care Teams Print Manager Relationship Specialty Start Date End Date Isac Rubalcava MD [address] [facility] [address] [place] [address] PCP - General Family Practice 03/06/18 05/19/19 documented as of this encounter
--- OUTSIDE RECORDS SUMMARY | 2025-02-10 13:31 | XMS_ITS | Encounter Summary ---
Author Organization [facility] Address [address] [place] [address] Care Team Providers Care Lead Scientist Name Role Phone Isac Rubalcava MD Primary Care Provider +1 [phone] Reason for Referral * Outpatient Services (Routine) - Closed Specialty Diagnoses / Procedures Referred By Conthuy t Referred To Contact Radiology Diagnoses Abdominal pain Procedures CT ABDOMEN WO CONTRAST Sean Green Sr., FNP [address] [place] [address] Phone: tel: fax: [facility] CT Scan [place] [address] [facility] [address] [place] [address] Phone: tel: fax: Referral ID Status Reason Start Date Expiration Date V isits Requested Visits Authorized [id number] Closed [place] CTS to Schedule (SGF) 04/09/2013 05/10/2014 1 1 Encounter Details Date Type Department Care Team (Latest Contact Info) Description 04/09/2013 Ancillary Orders [facility] Centralized Scheduling [address] [facility] [address] [place] [address] Sean Green Sr., FNP [address] [place], [place] [address] Abdominal pain (Primary Dx) Social History Tobacco Use Types Packs/Day Years Used Date Smoking Tobacco: Every Day Cigarettes Alcohol Use Standard Drinks/Week Comments No 0 (1 standard drink = 0.6 oz pur e alcohol) Comments No Sex and Gender Information Value Date Recorded Sex Assigned at Not on file Legal Sex Female 5:53 AM QUANTITATIVE STRATEGY ANALYST Gender Identity Not on file Sexual Orientation Not on file documented as of this encounter Plan of Treatment Not on file documented as of this encounter Results * CT ABDOMEN WO CONTRAST (04/10/2013 9:20 AM CDT) Anatomical Region Laterality Modality Abdomen Computed Tomogra phy 04/10/2013 9:07 AM CDT Narrative 04/10/2013 10:[address] ABDOMEN, non-contrast 10 April 2013 TECHNIQUE With the patient supine in the scanning gantry, with no oral or IV contrast administered, helical axial imaging was obtained from above the diaphragm through the pelvis at 5 mm increments for 64 axial images. Sagittal and coronal reconstructions are also obtained. DESCRIPTION Appearance of heart and lung bases remains unremarkable. Status post cholecystectomy is again noted. Unenhanced liver, pancreas, and spleen appear unremarkable. Kidneys appear unremarkable with no hydronephrosis or nephrolithiasis. There is a new minimal fat containing anterior abdominal wall hernia just above the umbilicus measuring 2.3 cm in diameter. There is moderately increased fecal artifact in the right colon, transverse colon, and descending colon to the extent visualized. There is a 3.9 cm AP diameter lumbar aortic aneurysm which appears essentially unchanged. Hazy density of the retroperitoneal fat is unchanged. IMPRESSION 1. unchanged hazy increased density of the retroperitoneal fat 2. unchanged lumbar aortic aneurysm 3. new minimal fat containing abdominal wall hernia 4. no acute abdominal findings appreciated Procedure Note Neo Lucia MD - 04/10/[address] ABDOMEN, non-contrast 10 April 2013 TECHNIQUE With the patient supine in the scanning gantry, with no oral or IV contrast administered, helical axial imaging was obtained from above the diaphragm through the pelvis at 5 mm increments for 64 axial images. Sagittal and coronal reconstructions are also obtained. DESCRIPTION Appearance of heart and lung bases remains unremarkable. Status post cholecystectomy is again noted. Unenhanced liver, pancreas, and spleen appear unremarkable. Kidneys appear unremarkable with no hydronephrosis or nephrolithiasis. There is a new minimal fat containing anterior abdominal wall hernia just above the umbilicus measuring 2.3 cm in diameter. There is moderately increased fecal artifact in the right colon, transverse colon, and descending colon to the extent visualized. There is a 3.9 cm AP diameter lumbar aortic aneurysm which appears essentially unchanged. Hazy density of the retroperitoneal fat is unchanged. IMPRESSION 1. unchanged hazy increased density of the retroperitoneal fat 2. unchanged lumbar aortic aneurysm 3. new minimal fat containing abdominal wall hernia 4. no acute abdominal findings appreciated us Sean Green Sr., HAND BRAILLE TRANSCRIBER CT ORDERABLES F inal Result documented in this encounter Visit Diagnoses Diagnosis Abdominal pain- Primary Abdominal pain, unspecified site Abdominal pain Abdominal pain, unspecified site documented in this encounter Care Teams Lead Scientist Relationship Specialty Start Date End Date Isac Rubalcava MD [address] [phone] PCP - General Family Practice 03/06/18 05/19/19 documented as of this encounter
--- OUTSIDE RECORDS SUMMARY | 2025-02-10 13:31 | XMS_ITS | Encounter Summary ---
Author Organization [facility] Address [address] [place] [address] Care Team Providers Care Software Implementation Specialist Name Role Phone Isac Rubalcava MD Primary Care Provider + -[phone] Encounter Details Date Type Department Care Team (Latest Contact Info) Description 12/07/2003 Outpatient Historical [facility] [address] [place] [address] Nayla Garcia, BUNDLE BREAKER [address] [place] [address] ABN INVOLUN MOVEMENT NEC (Primary Dx) Social History Tobacco Use Types Packs/Day Years Used Date Smoking Tobacco: Never Assessed Comments Unknown Sex and Gender Information Value Date Recorded Sex Assigned at Not on file 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
--- OUTSIDE RECORDS SUMMARY | 2025-02-10 13:31 | XMS_ITS | Encounter Summary ---
Author Organization [facility] Address [address] [place] [address] Care Team Providers Care Patching Machine Operator Name Role Phone Isac Rubalcava MD Primary Care Provider +1 [phone] Encounter Details Date Type Department Care Team (Latest Contact Info) Description 05/15/2002 Outpatient Historical [facility] Family Medicine [address] [address] Kamla Mckeon MD ABDOMINAL PAIN EPIGASTRIC (Primary Dx) Social History Tobacco Use Types Packs/Day Years Used Date Smoking Tobacco: Never Assessed Comments Unknown Sex and Gender Information Value Date Recorded Sex Assigned at Not on file Legal Sex Female 5:53 AM 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
--- OUTSIDE RECORDS SUMMARY | 2025-02-10 13:31 | XMS_ITS | Encounter Summary ---
Author Organization [facility] Address [address] [place] [address] Care Team Providers Care Electronic Equipment Set Up Operator Name Role Phone Isac Rubalcava MD Primary Care Provider + -[phone] Encounter Details Date Type Department Care Team (Late st Contact Info) Description 03/25/2012 Ancillary Orders [facility] CT Scan [place] [address] [phone] Ines Byrd, TARYN [address] [place] [address] Abdominal pain, RLQ; Unspecified symptom associated with female genital organs Social History Tobacco Use Types Packs/Day Years Used Date Smoking Tobacco: Never Assessed Comments Unknown Sex and Gender Information Value Date Recorded Sex Assigned at Not on file Legal Sex Female 5:53 AM DATE PULLER Gender Identity Not on file Sexual Orientation Not on file documented as of this encounter Plan of Treatment Not on file documented as of this encounter Visit Diagnoses Diagnosis Abdominal pain, RLQ Abdominal pain, right lower quadrant Unspecified symptom associated with female genital organs documented in this encounter Care Teams Electronic Equipment Set Up Operator Relationship Specialty Start Date End Date Isac Rubalcava MD [address] [place] [phone] PCP - General Family Practice 03/06/18 05/19/19 documented as of this encounter
--- OUTSIDE RECORDS SUMMARY | 2025-02-10 13:31 | XMS_ITS | Encounter Summary ---
Author Organization [facility] Address [address] [facility] [address] 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 Gender Identity Not on file Sexual Orientation Not on file documented as of this encounter Plan of Treatment Not on file documented as of this encounter Procedures Procedure Name Priority Date/Time Associated Diagnosis Comments VITAMIN B12 AND FOLATE Routine 02/21/2008 11:20 AM CDT IRON, TIBC, AND PERCENT SATURATION Routine 02/21/2008 11:20 AM CDT documented in this encounter Results * IRON AND TIBC (02/21/2008 11:20 AM CDT) IRON 62 50 - 170 ug/dL [facility] TIBC 298 250 - 450 ug/dL [facility] IRON % SATURATION 21 15 - 50 % [facility] Blood specimen (specimen) 02/21/2008 11:20 AM CDT 02/21/2008 9:56 PM CDT Physician Non-Staff CHEMISTRY ORDERABLES Final R esult Performing Organization Address City/[facility] Co de Phone Number [facility] CLIA# [id number] [address] [place] [address] * VITAMIN B12 AND FOLATE (02/21/2008 11:20 AM CDT) FOLATE, SERUM 23.84 >=5.38 ng/dL [facility] VITAMIN B12 311 211 - 911 pg/dL [facility] Blood specimen (specimen) 02/21/2008 11:20 AM CDT 02/21/2008 9:55 PM CDT Physician Non-Staff CHEMISTRY ORDERABLES Final R esult Performing Organization Address City/[facility] Co de Phone Number [facility] CLIA# [id number] [address] [place] [address] documented in this encounter Visit Diagnoses Not on filedocumented in this encounter Care Teams Yield Loss Inspector Relationship Specialty Start Date End Date Isac Rubalcava MD [address] [address] PCP - General Family Practice 03/06/18 05/19/19 documented as of this encounter
--- OUTSIDE RECORDS SUMMARY | 2025-02-10 13:31 | XMS_ITS | Encounter Summary ---
Author Organization [facility] Address [address] [place] [address] Care Team Providers Care Assistant Name Role Phone Isac Rubalcava MD Primary Care Provider +1 -[phone] Encounter Details Date Type Department Care Team (Latest Contact Info) Description 05/18/1998 Outpatient Historical [facility] Jake Longo NO ADDRESS ON FILE Contact dermatitis and other eczema, due to unspecified cause (Primary Dx); Unspecified adjustment reaction; Depressive disorder, not elsewhere classified Social History Tobacco Use Types Packs/Day Years Used Date Smoking Tobacco: Never Assessed Comments Unknown Sex and Gender Information Value Date Recorded Sex Assigned at Not on file Legal Sex Female 5:53 AM 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
--- OUTSIDE RECORDS SUMMARY | 2025-02-10 13:31 | XMS_ITS | Encounter Summary ---
Author Organization [facility] Address [address] [place] [address] Care Team Providers Care Electronics Engineering Technologist Name Role Phone Isac Rubalcava MD Primary Care Provider +1 [phone] Encounter Details Date Type Department Care Team (Latest Contact Info) Description 04/04/2012 Ancillary Orders [facility] Mammography [place] [address] [address] Ines Byrd, TARYN [address] [place] [address] Visit for screening mammogram Social History Tobacco Use Types Packs/Day Years Used Date Smoking Tobacco: Never Assessed Comments Unknown Sex and Gender Information Value Date Recorded Sex Assigned at Not on file Legal Sex Female 5:[address] Gender Identity Not on file Sexual Orientation Not on file documented as of this encounter Plan of Treatment Not on file documented as of this encounter Visit Diagnoses Diagnosis Visit for screening mammogram Other screening mammogram documented in this encounter Care Teams Electronics Engineering Technologist Relationship Specialty Start Date End Date Isac Rubalcava MD [address] [facility] [address] [place] [phone] PCP - General Family Practice 03/06/18 05/19/19 documented as of this encounter
--- OUTSIDE RECORDS SUMMARY | 2025-02-10 13:31 | XMS_ITS | Encounter Summary ---
Author Organization [facility] Address [address] [place] [address] Care Team Providers Care Vp Celebrity Services Name Role Phone Unavailable Primary Care Provider Unavailabl e Encounter Details Date Type Department Care Team (Latest Contact Info) Description 11/26/2019 Ancillary Orders [facility] Centralized Scheduling [address] [place] [phone] Shari Alex, 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
--- OUTSIDE RECORDS SUMMARY | 2025-02-10 13:31 | XMS_ITS | Encounter Summary ---
Author Organization [facility] Address [address] [place] [address] Care Team Providers Care Spa Technician Name Role Phone Isac Rubalcava MD Primary Care Provider +1 [phone] Encounter Details Date Type Department Care Team (Latest Contact Info) Description 09/03/1998 Outpatient Historical [facility] Patrick Michaud Jr., MD [address] [place] [id number] Vaginitis and vulvovaginitis, unspecified (Primary Dx) Social History Tobacco Use Types Packs/Day Years Used Date Smoking Tobacco: Never Assessed Comments Unknown Sex and Gender Information Value Date Recorded Sex Assigned at Not on file Legal Sex Female 5:53 AM SLATE CUTTER Gender Identity Not on file Sexual Orientation Not on file documented as of this encounter Plan of Treatment Not on file documented as of this encounter Visit Diagnoses Diagnosis Vaginitis and vulvovaginitis, unspecified- Primary documented in this encounter Care Teams Spa Technician Relationship Specialty Start Date End Date Isac Rubalcava MD [address] [facility] [address] [place] [address] PCP - General Family Practice 03/06/18 05/19/19 documented as of this encounter
--- OUTSIDE RECORDS SUMMARY | 2025-02-10 13:31 | XMS_ITS | Encounter Summary ---
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) Social History Tobacco Use Types Packs/Day Years Used Date Smoking Tobacco: Never Assessed Comments Unknown Sex and Gender Information Value Date Recorded Sex Assigned at Not on file Legal Sex Female 5:53 AM TOOL AND DIE SUPERVISOR Gender Identity Not on file Sexual Orientation Not on file documented as of this encounter Plan of Treatment Not on file documented as of this encounter Visit Diagnoses Diagnosis 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
--- OUTSIDE RECORDS SUMMARY | 2025-02-10 13:31 | XMS_ITS | Encounter Summary ---
Author Organization [facility] Address [address] [place] [address] Care Team Providers Care Car Hop Name Role Phone Isac Rubalcava MD Primary Care Provider +1 -[phone] Encounter Details Date Type Department Care Team (Latest Contact Info) Description 07/27/2004 Outpatient Historical [facility] Endocrinology[facility] [place] [address] [place] [phone] Burak Coles MD NO ADDRESS ON FILE HYPOTHYROIDISM NOS (Primary Dx) Social History Tobacco Use Types Packs/Day Years Used Date Smoking Tobacco: Never Assessed Comments Unknown Sex and Gender Information Value Date Recorded Sex Assigned at Not on file 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
--- OUTSIDE RECORDS SUMMARY | 2025-02-10 13:31 | XMS_ITS | Encounter Summary ---
Author Organization [facility] Address [address] [place] [address] Care Team Providers Care Web Production Artist Name Role Phone Isac Rubalcava MD Primary Care Provider +1 [phone] Encounter Details Date Type Department Care Team (Late st Contact Info) Description 06/05/2005 Emergency [facility] Emergency Department [address] [place] [phone] Nina Alvarez MD [address] [place] [address] ABDOMINAL PAIN UNSPEC SITE (Primary Dx) Social History Tobacco Use Types Packs/Day Years Used Date Smoking Tobacco: Never Assessed Comments Unknown Sex and Gender Information Value Date Recorded Sex Assigned at Not on file Legal Sex Female 5:53 AM LEAD ELECTRICIAN Gender Identity Not on file Sexual Orientation Not on file documented as of this encounter Plan of Treatment Not on file documented as of this encounter Procedures Procedure Name Priority Date/Time Associated Diagnosis Comments URINALYSIS MICROSCOPY ONLY Routine 06/05/2005 4:15 AM LEAD ELECTRICIAN URINALYSIS W/REFLEX MICROSCOPIC Routine 06/05/2005 4:15 AM LEAD ELECTRICIAN CBC WITH DIFFERENTIAL Routine 06/05/2005 3:02 AM LEAD ELECTRICIAN LIPASE Routine 06/05/2005 3:02 AM LEAD ELECTRICIAN COMPREHENSIVE METABOLIC PANEL Routine 06/05/2005 3:02 AM LEAD ELECTRICIAN documented in this encounter Results * (ABNORMAL) URINALYSIS (06/05/2005 4:15 AM LEAD ELECTRICIAN) COLOR UA Yellow Straw INTERFACE SYSTEM CLARITY UA Clear Clear INTERFACE SYSTEM LEUKOCYTE ESTERASE UA NEGATIVE NEGATIVE INTERFACE SYSTEM NITRITE UA NEGATIVE NEGATIVE INTERFACE SYSTEM PH UA 5.5 5.0 - 9.0 INTERFACE SYSTEM PROTEIN UA NEGATIVE NEGATIVE INTERFACE SYSTEM Comment: As of 05 positive protein results obtained on routine urinalysis will not be confirmed by sulfosalicylic acid (SSA) precipitation. Current methodology for protein detection is highly sensitive for detection of albumin; therefore, confirmation is not necessary. GLUCOSE UA NEGATIVE NEGATIVE INTERFACE SYSTEM KETONES UA NEGATIVE NEGATIVE INTERFACE SYSTEM UROBILINOGEN UA 0.2 0.2 INTE RFACE SYSTEM BILIRUBIN UA NEGATIVE NEGATIVE INTERFA CE SYSTEM BLOOD UA Small(A) NEGATIVE INTERFACE SYSTEM SPECIFIC GRAVITY UA >=1.030(A) 1.005 - 1.030 INTERFACE SYSTEM MICRO EXAM Yes(A) No INTERFACE SYSTEM 06/05/2005 4:15 AM LEAD ELECTRICIAN Nina Alvarez MD URINE ORDERABLES Final Res ult Performing Organization Address City/[facility] Co de Phone Number INTERFACE SYSTEM Refer to clinic/hospital department * URINALYSIS MICROSCOPY ONLY (06/05/2005 4:15 AM LEAD ELECTRICIAN) WBC URINE None Seen 0 - 2 INTERFACE SYSTEM RBC UA None Seen 0 - 2 INTERFACE SYSTEM HYALINE CAST None Seen 0 - 2 INTERFA CE SYSTEM BACTERIA UA None Seen None Seen INTERFAC E SYSTEM 06/05/2005 4:15 AM LEAD ELECTRICIAN Nina Alvarez MD URINE ORDERABLES Final Res ult Performing Organization Address City/[facility] Co de Phone Number INTERFACE SYSTEM Refer to clinic/hospital department * (ABNORMAL) CBC WITH DIFFERENTIAL (06/05/2005 3:02 AM LEAD ELECTRICIAN) WBC 8.3 4.5 - 11.0 K/ul INTERFACE SYSTEM RBC 4.72 4.20 - 5.40 Mil/ul INTERFACE SYSTEM HEMOGLOBIN 14.3 12.0 - 16.0 g/dL INTERFACE SYSTEM HEMATOCRIT 43.5 36.0 - 46.0 % INTERFACE SYSTEM MCV 92.2 84.0 - 103.0 Fl INTERFACE SYSTEM MCH 30.3 27.0 - 34.0 pg INTERFACE SYSTEM MCHC 32.9 30.0 - 35.0 g/dL INTERFACE SYSTEM RDW 13.8 11.0 - 14.5 % INTERFACE SYSTEM PLATELETS 192 140 - 440 K/ul INTERFACE SYSTEM MPV 9.9 8.9 - 12.8 Fl INTERFACE SYSTEM NEUTROPHILS 76.5(H) 42.2 - 75.2 % INTERFACE SYSTEM LYMPHOCYTES 12.9(L) 24.0 - 44.0 % INTERFACE SYSTEM MONOCYTES 8.9 2.0 - 10.0 % INTERFACE SYSTEM EOSINOPHILS 1.2 0.0 - 7.0 % INTERFACE SYSTEM BASOPHILS 0.5 0.0 - 1.0 % INTERFACE SYSTEM NEUTROPHIL ABSOLUTE 6.4 2.0 - 8.0 K/uL INTERFACE SYSTEM LYMPHOCYTE ABSOLUTE 1.1(L) 1.2 - 4.0 K/ul INTERFACE SYSTEM MONOCYTE ABSOLUTE 0.7(H) 0.1 - 0.6 K/ul INTERFACE SYSTEM EOSINOPHIL ABSOLUTE 0.1 0.0 - 0.7 K/ul INTERFACE SYSTEM BASOPHILS ABSOLUTE 0.0 0.0 - 0.2 K/ul INTERFACE SYSTEM 06/05/2005 3:02 AM LEAD ELECTRICIAN us Nina Alvarez MD HEMATOLOGY ORDERABLES Angy l Result INTERFACE SYSTEM Refer to clinic/hospital department * (ABNORMAL) COMPREHENSIVE METABOLIC PANEL (06/05/2005 3:02 AM LEAD ELECTRICIAN) GLUCOSE 133(H) 70 - 110 mg/dL INTERFACE SYSTEM BUN 4(L) 7 - 17 mg/dL INTERFACE SYSTEM CREATININE 0.7 0.7 - 1.2 mg/dL INTERFACE SYSTEM SODIUM 142 136 - 145 mEq/L INTERFACE SYSTEM POTASSIUM 3.6 3.5 - 5.0 mEq/L INTERFACE SYSTEM CO2 26 22 - 32 mmol/l INTERFACE SYSTEM CHLORIDE 109 95 - 110 mEq/L INTERFACE SYSTEM CALCIUM 8.3(L) 8.4 - 10.5 mg/dL INTERFACE SYSTEM ALKALINE PHOSPHATASE 221(H) 38 - 126 IU/L INTERFACE SYSTEM TOTAL PROTEIN 6.6 6.3 - 8.2 g/dL INTERFACE SYSTEM ALBUMIN 3.5 3.5 - 5.0 g/dL INTERFACE SYSTEM AST 342(H) 14 - 36 IU/L INTERFACE SYSTEM ALT 250(H) 9 - 52 IU/L INTERFACE SYSTEM BILIRUBIN TOTAL 0.4 0.2 - 1.4 mg/dL INTERFACE SYSTEM GLOBULIN (CALC) 3.1 2.4 - 3.9 g/dL INTERFACE SYSTEM ANION GAP 11 9 - 20 mEq/L INTERFACE SYSTEM ALBUMIN/GLOBULIN RATIO 1.1 1.0 - 2.3 INTERFACE SYSTEM OSMOLALITY, CALCULATED 290 275 - 295 mOsm/Kg INTERFACE SYSTEM 06/05/2005 3:02 AM LEAD ELECTRICIAN Nina Alvarez MD CHEMISTRY ORDERABLES Final Result Performing Organization Address [facility] Phone Number INTERFACE SYSTEM Refer to clinic/hospital department * LIPASE (06/05/2005 3:02 AM LEAD ELECTRICIAN) LIPASE 69 23 - 300 IU/L INTERFACE SYSTEM 06/05/2005 3:02 AM LEAD ELECTRICIAN Nina Alvarez MD CHEMISTRY ORDERABLES Final Result Performing Organization Address City/[facility] Co ri Phone Number INTERFACE SYSTEM Refer to clinic/hospital department documented in this encounter Visit Diagnoses Diagnosis Abdominal pain, unspecified site- Primary documented in this encounter Care Teams Web Production Artist Relationship Specialty Start Date End Date Isac Rubalcava MD [address] [address] PCP - General Family Practice 03/06/18 05/19/19 documented as of this encounter
--- OUTSIDE RECORDS SUMMARY | 2025-02-10 13:31 | XMS_ITS | Encounter Summary ---
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); Fluid Overload Social History Tobacco Use Types Packs/Day Years Used Date Smoking Tobacco: Never Assessed Comments Unknown Sex and Gender Information Value Date Recorded Sex Assigned at Not on file Legal Sex Female 5:53 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
--- OUTSIDE RECORDS SUMMARY | 2025-02-10 13:31 | XMS_ITS | Encounter Summary ---
Author Organization [facility] Address [address] [place] [address] Care Team Providers Care Shell Coremaker Name Role Phone Isac Rubalcava MD Primary Care Provider +1 -[phone] Encounter Details Date Type Department Care Team (Latest Contact Info) Description 05/08/2003 Outpatient [facility] [address] [place] [address] Myriam Gandhi MD NO ADDRESS ON FILE ABN BLOOD CHEMISTRY NEC (Primary Dx) Social History Tobacco Use Types Packs/Day Years Used Date Smoking Tobacco: Never Assessed Comments Unknown Sex and Gender Information Value Date Recorded Sex Assigned at Not on file Legal Sex Female 5:53 AM PROC TECH Gender Identity Not on file Sexual Orientation Not on file documented as of this encounter Plan of Treatment Not on file documented as of this encounter Visit Diagnoses Diagnosis Other abnormal blood chemistry- Primary documented in this encounter Care Teams Shell Coremaker Relationship Specialty Start Date End Date Isac Rubalcava MD [address] [facility] [address] [place] [address] PCP - General Family Practice 03/06/18 05/19/19 documented as of this encounter
--- OUTSIDE RECORDS SUMMARY | 2025-02-10 13:31 | XMS_ITS | Encounter Summary ---
Author Organization [facility] Address [address] [place] [address] Care Team Providers Care Network Systems Consultant Name Role Phone Isac Rubalcava MD Primary Care Provider +1 -[phone] Reason for Referral * Outpatient Services (Routine) - Closed Specialty Diagnoses / Procedures Referred By Kevin t Referred To Contact Diagnoses History of Graves' disease Procedures US HEAD NECK TISSUES Ines Byrd NP [address] [place] [address] Phone: tel: fax: Referral ID Status Reason Start Date Expiration Date Visits Re quested Visits Authorized [id number] Closed 04/19/2012 04/19/2013 1 1 Encounter Details Date Type Department Care Team (Late st Contact Info) Description 04/19/2012 Ancillary Orders [facility] Ultrasound [place] [address] [place] [address] Ines Byrd NP [address] [place] [address] History of Graves' disease Social History Tobacco Use Types Packs/Day Years Used Date Smoking Tobacco: Never Assessed Comments Unknown Sex and Gender Information Value Date Recorded Sex Assigned at Not on file Legal Sex Female 5:53 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 No thyroid bed masses or cysts are seen. Thyroid nuclear scan may be considered for further evaluation. IMPRESSION no masses or cysts identified in the region of the thyroid -- suggest nuclear scan at clinical discretion Procedure Note Neo Lucia MD - 04/24/2012 PROCEDURE THYROID ULTRASOUND, 23 April 2012 DESCRIPTION Sonography of the cervical soft tissues fails to reveal evidence of a thyroid with normal morphology. No thyroid bed masses or cysts are seen. Thyroid nuclear scan may be considered for further evaluation. IMPRESSION no masses or cysts identified in the region of the thyroid -- suggest nuclear scan at clinical discretion us Ines Byrd NP US ORDERABLES Final Result documented in this encounter Visit Diagnoses Diagnosis History of Graves' disease Personal history of other endocrine, metabolic, and immunity disorders History of Graves' disease Personal history of other endocrine, metabolic, and immunity disorders documented in this encounter Care Teams Network Systems Consultant Relationship Specialty Start Date End Date Isac Rubalcava MD [address] [phone] PCP - General Family Practice 03/06/18 05/19/19 documented as of this encounter
--- OUTSIDE RECORDS SUMMARY | 2025-02-10 13:31 | XMS_ITS | Encounter Summary ---
Author Organization [facility] Address [address] [place] [address] Care Team Providers Care Lead Manufacturing Technician Name Role Phone Isac Rubalcava MD Primary Care Provider +1 -[phone] Encounter Details Date Type Department Care Team (Late st Contact Info) Description 05/22/2003 Outpatient Historical 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
--- OUTSIDE RECORDS SUMMARY | 2025-02-10 13:31 | XMS_ITS | Encounter Summary ---
Author Organization [facility] Address [address] [place] [address] Care Team Providers Care Digital Solution Architect Name Role Phone Isac Rubalcava MD Primary Care Provider +1 -[phone] Encounter Details Date Type Department Care Team (Latest Contact Info) Description 09/09/2004 Outpatient Historical [facility] Echocardiography - [place] [address] [place] [address] X358 René Yañez MD NO ADDRESS ON FILE Mitral valve disorder (Primary Dx); Aortic valve disorder; Tricuspid valve disease Social History Tobacco Use Types Packs/Day Years Used Date Smoking Tobacco: Never Assessed Comments Unknown Sex and Gender Information Value Date Recorded Sex Assigned at Not on file Legal Sex Female 5:53 AM DATA MANAGEMENT ENGINEER Gender Identity Not on file Sexual Orientation Not on file documented as of this encounter Plan of Treatment Not on file documented as of this encounter Visit Diagnoses Diagnosis Mitral valve disorder- Primary Mitral valve disorders Aortic valve disorder Aortic valve disorders 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
--- OUTSIDE RECORDS SUMMARY | 2025-02-10 13:31 | XMS_ITS | Encounter Summary ---
Author Organization [facility] Address [address] [place] [address] Care Team Providers Care Test Baker Name Role Phone Isac Rubalcava MD Primary Care Provider +1 -[phone] Encounter Details Date Type Department Care Team (Latest Contact Info) Description 03/25/2002 Outpatient Historical [facility] Family Medicine- [address] [place] [address] Bruce Gomez, NO ADDRESS ON FILE HYPOGLYCEMIA NOS (Primary Dx); EDEMA; DEPRESSIVE DISORDER NEC Social History Tobacco Use Types Packs/Day Years Used Date Smoking Tobacco: Never Assessed Comments Unknown Sex and Gender Information Value Date Recorded Sex Assigned at Not on file 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
--- OUTSIDE RECORDS SUMMARY | 2025-02-10 13:31 | XMS_ITS | Encounter Summary ---
Author Organization [facility] Address [address] [place] [address] Care Team Providers Care Insight Leader Name Role Phone Isac Rubalcava MD Primary Care Provider +1 -[phone] Encounter Details Date Type Department Care Team (Late st Contact Info) Description 05/01/2012 [facility] [address] [place] [phone] Ines Byrd, TARYN [address] [place], [place] [phone] Shoulder pain Social History Tobacco Use Types Packs/Day Years Used Date Smoking Tobacco: Never Assessed Comments Unknown Sex and Gender Information Value Date Recorded Sex Assigned at Not on file 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 Clothing artifact is noted. No acromioclavicular separation is appreciated on nonweightbearing views. IMPRESSION essentially normal left shoulder views Procedure Note Neo Lucia MD - 05/02/2012 DESCRIPTION AP, Grashey, and tangential scapular lateral views of the LEFT SHOULDER 01 May 2012 show no acute fracture or deformity. Clothing artifact is noted. No acromioclavicular separation is appreciated on nonweightbearing views. IMPRESSION essentially normal left shoulder views us Ines Byrd FERTILIZER LOADER DIAGNOSTIC IMAGING ORDERABLE S Final Result documented in this encounter Visit Diagnoses Diagnosis Shoulder pain Pain in joint, shoulder region Shoulder pain Pain in joint, shoulder region documented in this encounter Care Teams Insight Leader Relationship Specialty Start Date End Date Isac Rubalcava MD [address] [phone] PCP - General Family Practice 03/06/18 05/19/19 documented as of this encounter
--- OUTSIDE RECORDS SUMMARY | 2025-02-10 13:31 | XMS_ITS | Encounter Summary ---
Author Organization [facility] Address [address] [place] [address] Care Team Providers Care Resolution Specialist Name Role Phone Isac Rubalcava MD Primary Care Provider +1 -[phone] Reason for Referral * Outpatient Services (Routine) - Closed Specialty Diagnoses / Procedures Referred By Kevin t Referred To Contact Diagnoses Osteoporosis Procedures XR DEXA BONE DENSITY AXIAL 1 OR MORE SITES Ines Byrd NP [address] [place] [address] Phone: tel: fax: Referral ID Status Reason Start Date Expiration Date Visits Re quested Visits Authorized [id number] Closed 04/29/2012 04/29/2013 1 1 Encounter Details Date Type Department Care Team (Late st Contact Info) Description 04/29/[address] 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 Total density measured in the lumbar spine is 0.871 g/sq cm for a T score of -1.6. The total bone density of the left hip measures 1.000 g/sq cm for a T score of +0.5. The femoral neck region measures 0.804 g/sq cm for a T score of -0.4. IMPRESSION normal bone mineral density Procedure Note Neo Lucia MD - 05/02/2012 PROCEDURE DEXA BONE DENSITY 01 May 2012 Bone mineral densitometry was assessed by DEXA of the lumbar spine and left hip. Total density measured in the lumbar spine is 0.871 g/sq cm for a T score of -1.6. The total bone density of the left hip measures 1.000 g/sq cm for a T score of +0.5. The femoral neck region measures 0.804 g/sq cm for a T score of -0.4. IMPRESSION normal bone mineral density Ines Byrd NP DIAGNOSTIC IMAGING ORDERABLE S Final Result documented in this encounter Visit Diagnoses Diagnosis Osteoporosis Osteoporosis, unspecified Osteoporosis Osteoporosis, unspecified documented in this encounter Care Teams Resolution Specialist Relationship Specialty Start Date End Date Isac Rubalcava MD [address] [facility] [address] [place] [phone] PCP - General Family Practice 03/06/18 05/19/19 documented as of this encounter
--- OUTSIDE RECORDS SUMMARY | 2025-02-10 13:31 | XMS_ITS | Encounter Summary ---
Author Organization [facility] Address [address] [place] [address] Care Team Providers Care Licensed Massage Practitioner Name Role Phone Isac Rubalcava MD Primary Care Provider +1 [phone] Encounter Details Date Type Department Care Team (Latest Contact Info) Description 04/11/2002 Outpatient Historical [facility] [address] [place] [address] Myriam Gandhi MD NO ADDRESS ON FILE REFLUX ESOPHAGITIS (Primary Dx); Excessive menstruation Social History Tobacco Use Types Packs/Day Years Used Date Smoking Tobacco: Never Assessed Comments Unknown Sex and Gender Information Value Date Recorded Sex Assigned at Not on file 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
--- OUTSIDE RECORDS SUMMARY | 2025-02-10 13:31 | XMS_ITS | Encounter Summary ---
Author Organization [facility] Address [address] [place] [address] Care Team Providers Care Printer'S Devil Name Role Phone Isac Rubalcava MD Primary Care Provider +1 -[phone] Encounter Details Date Type Department Care Team (Latest Contact Info) Description 05/12/2002 Outpatient Historical [facility] Family Medicine [address] [address] Kamla Mckeon MD ABDOMINAL PAIN UNSPEC SITE (Primary Dx) Social History Tobacco Use Types Packs/Day Years Used Date Smoking Tobacco: Never Assessed Comments Unknown Sex and Gender Information Value Date Recorded Sex Assigned at Not on file 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
--- OUTSIDE RECORDS SUMMARY | 2025-02-10 13:31 | XMS_ITS | Encounter Summary ---
Author Organization [facility] Address [address] [place] [address] Care Team Providers Care Parole Or Probation Officer Name Role Phone Isac Rubalcava MD Primary Care Provider +1 [phone] Encounter Details Date Type Department Care Team (Latest Contact Info) Description 06/16/2004 Outpatient Historical [facility] [address] [place] [address] Burak Coles MD NO ADDRESS ON FILE TOX DIF GOITER NO CRISIS (Primary Dx) Social History Tobacco Use Types Packs/Day Years Used Date Smoking Tobacco: Never Assessed Comments Unknown Sex and Gender Information Value Date Recorded Sex Assigned at Not on file 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
--- OUTSIDE RECORDS SUMMARY | 2025-02-10 13:31 | XMS_ITS | Encounter Summary ---
Author Organization [facility] Address [address] [place] [address] Care Team Providers Care Metal Coater Operator Name Role Phone Isac Rubalcava MD Primary Care Provider +1 -[phone] Encounter Details Date Type Department Care Team (Latest Contact Info) Description 09/09/2004 Outpatient Historical 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
--- OUTSIDE RECORDS SUMMARY | 2025-02-10 13:31 | XMS_ITS | Encounter Summary ---
Author Organization [facility] Address [address] [place] [address] Care Team Providers Care Caser Up Name Role Phone sIac Rubalcava MD Primary Care Provider +1 -[phone] Reason for Referral * Outpatient Services (Routine) - Closed Specialty Diagnoses / Procedures Referred By Contac t Referred To Contact Radiology Diagnoses Degeneration of lumbar or lumbosacral intervertebral disc Procedures MRI LUMBAR WO CONTRAST Ines Byrd NP [address] [place] [address] Phone: tel: fax: [facility] [place] [address] [place] [address] Phone: tel: fax: Referral ID Status Reason Start Date Expiration Date V isits Requested Visits Authorized [id number] Closed [facility] View CTS to Schedule (SGF) 02/20/2014 03/23/2015 1 1 Encounter Details Date Type Department Care Team (Latest Contact Info) Description 02/20/2014 Ancillary Orders [facility] Centralized Scheduling [address] [place] [phone] Ines Byrd NP [address] [place], [place] [address] Degeneration of lumbar or lumbosacral intervertebral disc (Primary Dx) Social History Tobacco Use Types Packs/Day Years Used Date Smoking Tobacco: Every Day Cigarettes Alcohol Use Standard Drinks/Week Comments No 0 (1 standard drink = 0.6 oz pur e alcohol) Comments No Sex and Gender Information Value Date Recorded Sex Assigned at Not on file 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 Exam: MRI LUMBAR WO CONTRAST Date/Time of Exam: Feb 23, 2014 10:54:12 AM Reason For Exam: Degeneration of lumbar or lumbosacral intervertebral disc. Technique: MRI of the lumbar spine was performed without the administration of intravenous contrast. The lumbar spine shows mild anterior subluxation at L5-S1. The cauda equina and conus medullaris appear normal. No intradural disease is present. Mild mixed type with type II changes surround the L5-S1 disc space. STIR images are otherwise unremarkable. Mild levoscoliosis could be present. The paraspinal tissues are unremarkable. L1-L2: Normal. L2-L3: Mild loss of disc signal is present. L3-L4: Normal. L4-L5: Normal. L5-S1: The disc is largely absent. Diffuse spondylosis is present causing prominent left foraminal stenosis. Impression: 1. 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 L5-S1 degenerative disc disease and spondylosis causes left foraminal stenosis which could affect the left L5 nerve. 2. Mild scoliosis may be present. 3. A AAA is partially included on the images and measures up to 3.8 cm transverse. This is grossly unchanged from the CT abdomen of July. Narrative Procedure Note Patrick Bueno MD - 02/23/2014 IMPRESSION IMPRESSION: See report below. Exam: MRI LUMBAR WO CONTRAST Date/Time of Exam: Feb 23, 2014 10:54:12 AM Reason For Exam: Degeneration of lumbar or lumbosacral intervertebral disc. Technique: MRI of the lumbar spine was performed without the administration of intravenous contrast. The lumbar spine shows mild anterior subluxation at L5-S1. The cauda equina and conus medullaris appear normal. No intradural disease is present. Mild mixed type with type II changes surround the L5-S1 disc space. STIR images are otherwise unremarkable. Mild levoscoliosis could be present. The paraspinal tissues are unremarkable. L1-L2: Normal. L2-L3: Mild loss of disc signal is present. L3-L4: Normal. L4-L5: Normal. L5-S1: The disc is largely absent. Diffuse spondylosis is present causing prominent left foraminal stenosis. Impression: 1. 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 L5-S1 degenerative disc disease and spondylosis causes left foraminal stenosis which could affect the left L5 nerve. 2. Mild scoliosis may be present. 3. A AAA is partially included on the images and measures up to 3.8 cm transverse. This is grossly unchanged from the CT abdomen of July. Ines Byrd NP MR ORDERABLES Final Result documented in this encounter Visit Diagnoses Diagnosis Degeneration of lumbar or lumbosacral intervertebral disc- Primary Degeneration of lumbar or lumbosacral intervertebral disc documented in this encounter Care Teams Caser Up Relationship Specialty Start Date End Date Isac Rubalcava MD [address] [facility] [place] [address] PCP - General Family Practice 03/06/18 05/19/19 documented as of this encounter
--- OUTSIDE RECORDS SUMMARY | 2025-02-10 13:31 | XMS_ITS | Encounter Summary ---
Author Organization [facility] Address [address] [place] [address] Care Team Providers Care Civil Engineer'S Aide Name Role Phone Isac Rubalcava MD Primary Care Provider +1 -[phone] Encounter Details Date Type Department Care Team (Latest Contact Info) Description 04/08/2003 Outpatient Historical [facility] [address] [place] [address] Myriam Gandhi MD NO ADDRESS ON FILE BACKACHE NOS (Primary Dx); SPASM OF MUSCLE Social History Tobacco Use Types Packs/Day Years Used Date Smoking Tobacco: Never Assessed Comments Unknown Sex and Gender Information Value Date Recorded Sex Assigned at Not on file 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
--- OUTSIDE RECORDS SUMMARY | 2025-02-10 13:31 | XMS_ITS | Encounter Summary ---
Author Organization [facility] Address [address] [place] [address] Care Team Providers Care Mortgage Underwriter Name Role Phone Isac Rubalcava MD Primary Care Provider +1 -[phone] Encounter Details Date Type Department Care Team (Late st Contact Info) Description 03/25/2012 Ancillary Orders [facility] [address] [phone] Ines Byrd, TARYN [address] [place] [address] Screening Social History Tobacco Use Types Packs/Day Years Used Date Smoking Tobacco: Never Assessed Comments Unknown Sex and Gender Information Value Date Recorded Sex Assigned at Not on file 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
--- OUTSIDE RECORDS SUMMARY | 2025-02-10 13:32 | XMS_ITS | Clinical Summary ---
Author Organization [facility] Address [address] [place] [address] Phone Care Team Providers Care Display Mechanic Name Role Phone Unavailable Primary Care Provider Unavailabl e Allergies Active Allergy Reactions Criticality Noted Date Comments Codeine Nausea and Vomiting Low 08/14/2013 Sulfa (Sulfonamide Antibiotics) Nausea and Vomiting Low 08/14/2013 Medications CYANOCOBALAMIN, VITAMIN B-12, (VITAMIN B-12 INJECTION) by Injection route see administration instructions. Each month Active fish oil-omega-3 fatty acids 340-1,000 mg Oral Cap Take 2 Caps by mouth daily . Active fluticasone (FLONASE) 50 mcg/spray [place], SuspensionIndicati ons:Acute suppurative otitis media of right ear without spontaneous rupture of tympanic membrane, recurrence not specified SHAKE LIQUID AND USE 2 SPRAYS IN EACH NOSTRIL DAILY. 48 Gram 1 12/16/19 17 Active traZODone (DESYREL) 100 mg tablet TAKE 1 TABLET(100 MG) BY MOUTH DAILY AT BEDTIME. 90 Tablet 3 03/09/20 17 Active SYNTHROID 125 mcg tabletIndications: Acquired hypothyroidism Take 1 Tablet (125 mcg) by mouth daily microsoft bi developer. 90 Tablet 1 05/08/20 17 Active desvenlafaxine (PRISTIQ) 100 mg Extended Release 24 hour tabletIndications: Depression with anxiety Take 1 Tablet (100 mg) by mouth daily with breakfast. 90 Tablet 1 06/20/20 17 Active clonazePAM (KlonoPIN) 1 mg tabletIndications: Depression with anxiety TAKE 2 TAB IN THE AM; 1 TAB IN PM. 90 Tablet 1 07/11/20 17 Active raNITIdine (ZANTAC) 150 mg tabletIndications: Gastroesophageal reflux disease with esophagitis TAKE 1 TABLET BY MOUTH ONCE DAILY NEEDED FOR INDIGESTION 90 Tablet 12/04/19 18 Active gabapentin (NEURONTIN) 300 mg capsule TAKE 1 CAPSULE(300 MG) BY MOUTH THREE TIMES DAILY 30 Capsule 03/06/20 18 Active cpap medical deviceIndications: Obstructive sleep apnea (adult) (pediatric) CPAP @ 6 cwp with heated humidifier. Length of need:99 mo; Cpap/Bipap supplies: nasal mask with headgear A7034,A7035 1/6mo, mask only A7034 1/3mo, cushion A7032 2/mo, heated A4604 1/3mo, water chamber A7046 1/6mo, filter disposable A7038 2/mo, Filter reusable A7039 1/6mo 1 Each 12/26/19 20 Active Active Problems Problem Noted Date Diagnosed Date Advanced sleep phase syndrome 12/15/2016 Obstructive sleep apnea on CPAP 09/20/2016 Gastroesophageal reflux disease with esophagitis 03/06/2016 Nausea and vomiting 02/15/2016 Abdominal pain 02/15/2016 Tobacco use 05/07/2015 Aneurysm of abdominal aorta 12/18/2014 Hypothyroidism 10/16/2014 Hyperlipidemia 10/16/2014 Depression with anxiety 10/16/2014 Restless leg syndrome 10/16/2014 Seasonal allergic rhinitis 10/16/2014 Chronic back pain 10/16/2014 Graves disease 10/16/2014 Constipation 12/19/2013 Adenomatous polyp of colon 09/23/2013 Internal hemorrhoids with other complication 05/2014 Resolved Problems Problem Noted Date Diagnosed Date [...] Day Cigarettes 1 35 Smokeless Tobacco: Never Tobacco Cessation:Ready to Q uit: No Alcohol Use Standard Drinks/Week Comments No 0 (1 standard drink = 0.6 oz pur e alcohol) Comments No Sex and Gender Information Value Date Recorded Sex Assigned at Not on file 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 Gender Identity Not on file Sexual Orientation Not on file Occupation Industry Job Start Date Job End Date Not on file Not on file Not on file Not on file Last Filed Vital Signs Vital Sign Reading Time Taken Comments Blood Pressure 134/75 01/17/2019 9:37 AM CDT Pulse 73 01/17/2019 9:37 AM CDT Temperature 36.3 C (97.3 F) 01/17/2019 9:37 AM CDT Respiratory Rate 14 01/17/2019 9:37 AM CDT Oxygen Saturation 93% 01/17/2019 9:37 AM CDT Inhaled Oxygen Concentration - - Weight 86.6 kg (191 lb) 01/17/2019 9:37 AM CDT Height 162.6 cm (5' 4 ) 01/17/2019 9:37 AM CDT Body Mass Index 32.79 01/17/2019 9:37 AM CDT Plan of Treatment Health Maintenance Due Date Last Done Comments HPV/Cotest (21-29) 1985 HPV/Cotest (30-65) 1994 CERVICAL CANCER SCREENING 09/20/2001 PAP SMEAR 09/20/2001 09/20/1998 BREAST CANCER SCREENING 2004 DTAP/TDAP/TD VACCINES (1 [...] patient's age to complete this topic Insurance [place] [address] [place] [address] DUAL COMPLETE MCR PPO D-SNP Advance Directives For more information, please contact: [phone] * Full Code (Latest Code Status on File) Date Activated Date Inactivated Comments 02/15/2016 3:42 PM 02/15/2016 6:27 PM * Full Code Date Activated Date Inactivated Comments 08/18/2012 6:23 PM 08/22/2012 2:14 PM
--- OUTSIDE RECORDS SUMMARY | 2025-02-10 13:32 | XMS_ITS | Encounter Summary ---
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 Name Role Phone Isac Rubalcava MD Primary Care Provider [phone] Reason for Referral * Outpatient Services (Routine) - Closed Specialty Diagnoses / Procedures Referred By Kevin crow Referred To Contact Diagnoses Chronic left shoulder pain Procedures MRI SHOULDER WO CONTRAST LEFT Ines Byrd NP [address] [place] [address] Phone: tel: fax: Referral ID Status Reason Start Date Expiration Date Visits Re quested Visits Authorized [id number] Closed 05/06/2012 05/06/2013 1 1 * Outpatient Services (Routine) - Closed Specialty Diagnoses / Procedures Referred By Kevin crow Referred To Contact Diagnoses Neck pain, chronic Radiculopathy Procedures MRI CERVICAL WO CONTRAST Ines Byrd NP [address] [place] [address] Phone: tel: fax: Referral ID Status Reason Start Date Expiration Date Visits Re quested Visits Authorized [id number] Closed 05/06/2012 05/06/2013 1 1 Encounter Details Date Type Department Care Team (Late st Contact Info) Description 05/06/2012 Ancillary Orders [facility] [place] [address] [place] [address] 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 Byrd, 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 [address] [place] [address] Neck pain, chronic; Radiculopathy; Chronic left shoulder pain Social History Tobacco Use Types Packs/Day Years Used Date Smoking Tobacco: Never Assessed Comments Unknown Sex and Gender Information Value Date Recorded Sex Assigned at Not on file 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 Exam: MRI CERVICAL WO CONTRAST Date/Time of Exam: May 09, 2012 11:30:00 AM Reason For Exam: Cervicalgia. Technique: MRI of the cervical spine was performed without the administration of intravenous contrast. Findings: Multilevel cervical spine degenerative changes and straightening of the cervical lordosis. No significant osseous abnormality. The paraspinal soft tissues are unremarkable. C2-C3: Unremarkable. C3-C4: The right foramen is patent. Mild bony encroachment on the left foramen. C4-C5: Mild disc space height loss and a moderate disc bulge and mild central canal and moderate to severe left and moderate right foraminal narrowing. C5-C6: Small left uncinate spur and mild left foraminal narrowing. C6-C7: Mild disc space height loss and a mild disc bulge and mild left foraminal narrowing. C7-T1: Unremarkable. Impression: 1. Degenerative changes and bilateral C3-C4, C4-C5 and left C5-C6 and C6-C7 foraminal narrowing. haleigh - uploaded from [employer]- Narrative Procedure Note Nilo Rogers MD - 05/14/2012 IMPRESSION IMPRESSION: See report below. Exam: MRI CERVICAL WO CONTRAST Date/Time of Exam: May 09, 2012 11:30:00 AM Reason For Exam: Cervicalgia. Technique: MRI of the cervical spine was performed without the administration of intravenous contrast. Findings: Multilevel cervical spine degenerative changes and straightening of the cervical lordosis. No significant osseous abnormality. The paraspinal soft tissues are unremarkable. C2-C3: Unremarkable. C3-C4: The right foramen is patent. Mild bony encroachment on the left foramen. C4-C5: Mild disc space height loss and a moderate disc bulge and mild central canal and moderate to severe left and moderate right foraminal narrowing. C5-C6: Small left uncinate spur and mild left foraminal narrowing. C6-C7: Mild disc space height loss and a mild disc bulge and mild left foraminal narrowing. C7-T1: Unremarkable. Impression: 1. Degenerative changes and bilateral C3-C4, C4-C5 and left C5-C6 and C6-C7 foraminal narrowing. haleigh - uploaded from [employer]- Transcriptions [facility] - 09/12/2012 9:28 AM CST Ines Byrd NP MR ORDERABLES Edited * MRI SHOULDER WO CONTRAST LEFT (05/09/2012 10:56 AM CDT) Anatomical Region Laterality Modality Upper Extremity Magnetic Resonan ce 05/09/2012 10:2 4 AM CDT Impressions 05/09/2012 11:30 AM CDT Impression: 1. Minimal subacromial/subdeltoid bursitis without a full-thickness tear of the rotator cuff or definite labral pathology identified. GO/ljw 1057 AM - uploaded from [employer] - Narrative 05/09/2012 11:30 AM CDT IMPRESSION - see report below. Exam: MRI SHOULDER WO CONTRAST LEFT Date/Time of Exam: May 09, 2012 10:56:00 AM Reason For Exam: Pain in joint, shoulder region. Technique: MRI of the left shoulder was performed without the administration of intravenous contrast. Comparison: Left shoulder radiographs 05/01/2012. Findings: The long head of the biceps tendon is seated within the bicipital groove and is within normal limits at the level of the rotator interval with the biceps anchor intact. No conventional MRI evidence of a discrete labral tear is identified. The humeral head is well positioned over the glenoid. No full thickness tear of the rotator cuff is identified. Small amount of edema and fluid within the subacromial/subdeltoid bursa is present. Minimal degenerative change of the left acromioclavicular joint is present. A type I acromion process is seen. No concerning marrow signal abnormality is identified. Procedure Note Zari Maciel MD - 05/09/2012 IMPRESSION - see report below. Exam: MRI SHOULDER WO CONTRAST LEFT Date/Time of Exam: May 09, 2012 10:56:00 AM Reason For Exam: Pain in joint, shoulder region. Technique: MRI of the left shoulder was performed without the administration of intravenous contrast. Comparison: Left shoulder radiographs 05/01/2012. Findings: The long head of the biceps tendon is seated within the bicipital groove and is within normal limits at the level of the rotator interval with the biceps anchor intact. No conventional MRI evidence of a discrete labral tear is identified. The humeral head is well positioned over the glenoid. No full thickness tear of the rotator cuff is identified. Small amount of edema and fluid within the subacromial/subdeltoid bursa is present. Minimal degenerative change of the left acromioclavicular joint is present. A type I acromion process is seen. No concerning marrow signal abnormality is identified. IMPRESSION Impression: 1. Minimal subacromial/subdeltoid bursitis without a full-thickness tear of the rotator cuff or definite labral pathology identified. GO/kee 1057 AM - uploaded from [employer] - Ines Byrd NP MR ORDERABLES Final Result documented in this encounter Visit Diagnoses Diagnosis Neck pain, chronic Cervicalgia Radiculopathy Neuralgia, neuritis, and radiculitis, unspecified Chronic left shoulder pain Pain in joint, shoulder region Chronic left shoulder pain Pain in joint, shoulder region Neck pain, chronic Cervicalgia Radiculopathy Neuralgia, neuritis, and radiculitis, unspecified documented in this encounter Care Teams Cheesemaking Laborer Relationship Specialty Start Date End Date Isac Rubalcava MD [address] [id number] PCP - General Family Practice 03/06/18 05/19/19 documented as of this encounter
--- NOTE | 2025-02-10 13:47 | W.ED.BACK ---
HPI - Back Pain/Injury General: Chief Complaint: Back Pain/Injury Stated Complaint: BACK PAIN Time Seen by Provider: 02/10/25 13:23 History of Present Illness: Patient is 59-year-old female with history of Graves' disease, chronic equal lower extremity bronzing and edema without change, presents to the emergency room with left low back pain. This started this morning, without injury, and has worsened throughout the day until patient could not move off of her sisters couch. EMS was called since she could not move off the couch. Patient denies saddle anesthesia, incontinence of stool or urine. She denies fever, midline tenderness. No nausea, or vomiting. Associated symptoms: Deny abdominal pain, chills, fever(s), nausea or vomiting Related Data Home Medications ?Medication ?Instructions ?Recorded ?Confirmed fluticasone propionate 50 50 mcg intranasal BID 02/10/25 02/10/25 mcg/actuation nasal spray,suspension levothyroxine 112 mcg tablet 112 mcg PO DAILY 02/10/25 02/10/25 (Synthroid) lisinopril 10 mg tablet 10 mg PO DAILY 02/10/25 02/10/25 lovastatin 40 mg tablet 40 mg PO BEDTIME 02/10/25 02/10/25 omeprazole 40 mg capsule,delayed 40 mg PO BID 02/10/25 02/10/25 release paroxetine HCl 20 mg tablet 20 mg PO DAILY 02/10/25 02/10/25 trazodone 150 mg tablet 150 mg PO BEDTIME 02/10/25 02/10/25 Previous Rx's ?Medication ?Instructions ?Recorded methocarbamol 500 mg tablet 500 mg PO Q8H PRN muscle spasm #30 02/10/25 tabs methylprednisolone 4 mg tablets in See Rx Instructions PO .COMPLEX 02/10/25 a dose pack (Medrol (Jerome)) #21 ea Allergies Allergy/AdvReac Type Severity Reaction Status Date / Time No Known Allergies Allergy Verified 02/10/25 14:15 Review of Systems General: Reports: 10 or more systems reviewed and unremarkable except in HPI and below Const: Denies: fever(s) or chills ENMT: Denies: throat pain or mouth pain Card: Reports: edema (chronic); Denies: chest pain, palpitations or lightheadedness Resp: Denies: dyspnea or productive cough GI: Denies: abdominal pain, nausea or vomiting : Denies: flank pain, difficulty voiding or urinary frequency Musc: Denies: neck pain, back pain or extremity pain Skin/Breast: Denies: rash or pruritus Neuro: Denies: headache(s), numbness in extremities or weakness in extremities Psych: Denies: anxiety or depression Endo: Denies: polyuria or polydipsia Lew/Lymph: Denies: easy bruising or easy bleeding All/Imm: Denies: urticaria or throat swelling Physical Exam Const: COMMON NORMALS: no acute distress, average body habitus and patient oriented x3 HENMT: COMMON NORMALS: normocephalic and atraumatic HEAD & SCALP: normocephalic and atraumatic Neck/C-Spine: COMMON NORMALS: full ROM and no lymphadenopathy GENERAL: Yes normal visual inspection and Yes trachea midline Lymph: LYMPHATIC: no lymphadenopathy noted Chest: COMMONS NORMALS: normal inspection of the chest and normal palpation of entire chest wall Resp: COMMON NORMALS: normal respiratory effort and clear to auscultation bilaterally AUSCULTATION: clear to auscultation bilaterally Cardio: COMMON NORMALS: regular rate and regular rhythm RATE: regular rate RHYTHM: regular rhythm GI: COMMON NORMALS: Normal to inspection, nondistended, normoactive bowel sounds present, Soft to palpation and non-tender PALPATION: Yes Soft to palpation : COMMON NORMALS: Yes no CVA tenderness BLADDER/KIDNEY EXAM: Yes no CVA tenderness Back/Pelvis: COMMON NORMALS: no CVA tenderness LUMBAR SPINE/LOWER BACK: Yes straight leg raise positive right Straight leg raise positive details right: at 60 degrees PELVIS: Yes iliac crest elevation on the left SACROILIAC JOINTS: Yes SI joint(s) abnormal SI joint details: tender to palpation (left) and pain elicited by passive hyperextension of lower extremity Neuro: COMMON NORMALS: patient oriented x3 Course Reevaluation(s): Reevaluation #1: Patient states she is somewhat improved after Norflex, Toradol, dexamethasone. Will give Nitro x 1 here only, and send dexamethasone to pharmacy of choice with Robaxin. Patient will utilize ice, and [id number] topical Lidoderm patches. Vital Signs: Vital signs: Vital Signs Temperature 99.3 F 02/10/25 13:26 Pulse Rate 63 02/10/25 15:04 Respiratory Rate 16 02/10/25 15:04 Blood Pressure 151/68 07/29/25 15:04 Pulse Oximetry 98 02/10/25 15:04 Oxygen Delivery Me thod Room Air 02/10/25 13:26 MDM - Back Pain/Injury Medical Decision Making Patient is 59-year-old female with worsening back pain without injury today. Exam is consistent with sciatica left. She did have some pain with iliac crest elevation on the left side. Her straight leg was positive on the right. She did have some relief after the Toradol, Norflex. I have sent the methocarbamol and Medrol Dosepak to the pharmacy. All of her questions answered her satisfaction No radiology studies performed this visit Discharge Plan Discharge Patient Disposition: Home Clinical Impression: Sciatica Qualifiers: Laterality: left Qualified Code(s): M54.32 - Sciatica, left side Condition: Stable Prescriptions: New methocarbamol 500 mg tablet 500 mg PO Q8H PRN (Reason: muscle spasm) Qty: 30 0RF methylprednisolone [Medrol (Jerome)] 4 mg tablets,dose pack See Rx Instructions .ROUTE .COMPLEX Qty: 21 0RF Rx Instructions: for 6 days No Action lovastatin 40 mg tablet 40 mg PO BEDTIME omeprazole 40 mg capsule,delayed release(DR/EC) 40 mg PO BID paroxetine HCl 20 mg tablet 20 mg PO DAILY trazodone 150 mg tablet 150 mg PO BEDTIME lisinopril 10 mg tablet 10 mg PO DAILY fluticasone propionate 50 mcg/actuation spray,suspension 50 mcg INTRANASAL BID levothyroxine [Synthroid] 112 mcg tablet 112 mcg PO DAILY Discharge Orders: Discharge ED (Routine); Ordered 02/10/25 Ordered By: Mali Cueto Referrals: Jinny Cabrera APN [Staff Physician, Family Practice] Discharge Diet: Usual diet Discharge Activity: Resume usual activity Patient Instructions: Sciatica (ED), Patient Portal & Tom Instructions Activity Restrictions/Additional Instructions: Caution on lifting. Do not lift more than a gallon of milk over the next 1 week. Apply Lidoderm patch [id number] to your left lower back at this area. You may ice this area that can help with pain I have sent the Medrol Dosepak, and muscle relaxer to the pharmacy. Caution on sedation on the muscle relaxer. Use as directed. 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
[2025-02-10] MEDS: orphenadrine 30 mg/mL Inj 2 mL 60 MG IM (14:01)
[2025-02-10] MEDS: HYDROcodone-acetaminophen 5-325 mg Tablet 1 TAB PO (15:00)
[2025-02-10 15:04] VITALS: BP 151/68; PULSE 63; RESP 16; O2SAT 98
== END 2025-02-10 15:04 | disposition home or self-care (01) ==
PROVIDERS: Emergency Provider Physician Assistant; PCP Nurse Practitioner Family
DX: M54.32 Sciatica, left side (principal)
CPT/HCPCS: 96372; 99284; J1100; J1885; J2360; J9999